=== PATIENT | female | born 1975 | race Caucasian/White ===

== ENCOUNTER 2016-09-06 17:04 | Emergency (ER) | payer SELFPAY ==
[~2016-09-06 17:04] MED LIST: Sodium Chloride 0.9% 1,000 ML BAG ONE
[2016-09-06] MEDS ORDERED: Aspirin 325 MG TAB ONE (18:50)
--- NOTE | 2016-09-06 18:59 | RAD ---
FRONTAL RADIOGRAPH OF CHEST PORTABLE UPRIGT: Date: 09/06/16 COMPARISON: 08/06/13. HISTORY: Chest pain. FINDINGS: Lungs are clear. Heart and mediastinal contours within normal limits. Osseous structures are grossly unremarkable. Clips in right upper quadrant suggest prior cholecystectomy. IMPRESSION: No acute findings. POS: HUGHH
[2016-09-06 19:00] LABS: #Basophils 0.2 thou/uL (0.0-0.2); #Eosinphils 0.5 thou/uL (0.0-0.7); #Lymphocytes 3.6 thou/uL (1.20-3.40); #Monocytes 0.6 thou/uL (0.11-0.59); %Basophils 1.7 % (0.0-1.0); %Eosinophils 4.6 % (0.0-10.0); %Lymphocytes 36.5 % (21.0-51.0); %Neutrophils 51.2 % (42.0-75.0); Hemoglobin 12.4 g/dL (12.0-16.0); Mean Corpuscular HGB CONC 36.5 g/dL (32.0-36.0); Mean Corpuscular Hemoglobin 33.3 pg (27.0-31.0); Mean Corpuscular Volume 91.4 fl (81.0-99.0); Mean Platelet Volume 7.4 fL (7.4-10.4); Platelet Count 350 thou/uL (130-400); RBC Distribution Width 11.9 % (11.5-14.5); Red Blood Cell (RBC) Count 3.73 mill/uL (4.20-5.40); White Blood Cell (WBC) Count 9.8 thou/uL (4.8-10.8)
[2016-09-06 19:02] LABS: INR-International Normal Ratio 0.9; Prothrombin Time 12.6 SEC (12.0-14.7)
[2016-09-06 19:14] LABS: ALT (SGPT) 12 U/L (0-55); AST (SGOT) 14 U/L (5-34); Alkaline Phosphatase 117 U/L (40-150); Anion Gap 19 mmol/L (10-20); BUN (Urea Nitrogen) 14 mg/dL (7.0-18.7); Bilirubin, Total Less than 0.3 mg/dL (0.2-1.2); CK (CPK) 82 U/L (29-168); Calc. Creatinine Clearance 0 mL/min (70-130); Calcium 9.2 mg/dL (7.8-10.44); Carbon Dioxide 25 mmol/L (22-29); Chloride 102 mmol/L (98-107); Estimated GFR-MDRD 54; Globulin 2.4 g/dL (2.4-3.5); Glucose 87 mg/dL (70-105); Potassium 4.3 mmol/L (3.5-5.1); Protein, Total 6.4 g/dL (6.0-8.3); Sodium 142 mmol/L (136-145)
[2016-09-06 19:21] LABS: CKMB 0.5 ng/mL (0-6.6); Troponin I Less than 0.010 ng/mL (< 0.028)
[2016-09-06 19:29] LABS: Magnesium 2.3 mg/dL (1.6-2.6)
--- NOTE | 2016-09-06 23:05 | ERRECORD ---
[facility] EMERGENCY RECORD HPI CHEST PAIN (18:09 LLDO) CHIEF COMPLAINT: Patient presents for evaluation of chest pain, ongoing, Denies automated implantable cardioverter-defibrillator event, Patient presents for evaluation of mild discomfort last night but much worse when she woke this morning. mostly substernal and bilateral ant chest. rad to left shoulder, left arm, left neck and back. associated sob and occasionally some diaphoresis and intermittent nausea. never had this pain before. smoker. brother had his first heart attack at age 23. HISTORIAN: History provided by patient, History provided by patient's spouse. LOCATION: Symptoms are generalized. QUALITY: Pain is dull in nature, described as aching, described as a sensation of fullness, described as pressure-like, described as "like somebody hit me in the middle of the chest. SEVERITY: Maximum severity of symptoms severe, Currently symptoms are moderate, Maximum severity of pain rated as 10/10, Current severity of pain rated as 8/10. TIME COURSE: Sudden onset of symptoms, Symptoms are improving, are constant. ASSOCIATED WITH: No associated cough, Associated with diaphoresis, No associated fever, Associated with nausea, Associated with shortness of breath, No associated trauma, No associated upper respiratory infection, No associated vomiting. EXACERBATED BY: Patient's condition exacerbated by deep breaths, Patient's condition exacerbated by exercise, Patient's condition exacerbated by movement, Patient's condition exacerbated by palpation of chest, Patient's condition exacerbated by walking. RELIEVED BY: Patient's condition relieved by nothing. RISK FACTORS: Coronary artery disease risk factors, include family history, include smoking, Thoracic aortic dissection risk factors, Pulmonary embolism risk factors, include smoking. HEART SCORE: Patients history is Highly Suspicious (2), Patients ECG has Non specific repolarisation disturbance/LBTB/PM (1), Patients age is equal to or less than 45 (0), Patient has 1 or 2 risk factors (1), Total 4. WELLS CRITERIA FOR PE: Total 0. ROS CONSTITUTIONAL: Negative constitutional review of systems. (18:21 LLDO) EYES: Negative eye review of systems, Historian denies eye pain, denies eye redness, denies eye discharge. (18:24 LLDO) ENT: Negative ears, nose, throat review of systems, Historian &a-1R&a+25V*p+0X*t4365D*c202B*c15G*c2P*p-0X&a-25V&a+1R Name: Jolie Joshi : 1975 F41 MedRec: [id number] AcctNum: [id number] Prepared: Myranda Sep 06, 2016 21:24 by Interface Page 1 of 5 pMD [facility] EMERGENCY RECORD denies epistaxis, denies rhinorrhea, denies sinus pain, denies sore throat. (18:24 LLDO) CARDIOVASCULAR: Historian reports chest pain, radiation to, Historian reports diaphoresis, reports dyspnea on exertion. (18:21 LLDO) RESPIRATORY: Negative respiratory review of systems, Historian denies cough, denies shortness of breath, denies sputum. (18:24 LLDO) GI: Historian reports nausea. (18:21 LLDO) GENITOURINARY FEMALE: Negative genitourinary review of systems, Historian denies dysuria, denies frequency, denies urgency. (18:24 LLDO) MUSCULOSKELETAL: Negative musculoskeletal review of systems, Historian denies arthralgias, denies back pain, denies injury, denies myalgias, denies neck pain. (18:24 LLDO) SKIN: Negative skin review of systems, Historian denies cellulitis, denies rash, denies skin changes, denies skin lesions. (18:24 LLDO) NEUROLOGIC: Negative neurologic review of systems, Historian denies confusion, denies dizziness, denies focal weakness, denies mental status changes. (18:24 LLDO) HEMO/LYMPHATIC: Normal hematologic/lymphatic system review, Historian denies abnormal blood clotting, denies gum bleeding, denies petechiae. (18:24 LLDO) ALLERGIC/IMMUNOLOGIC: Normal allergy/immunologic system review, Historian denies eczema, denies environmental allergies, denies food allergies. (18:24 LLDO) PSYCHIATRIC: Negative psychiatric review of systems, Historian denies alcohol abuse, denies anxiety, denies depression, denies drug abuse, denies hallucinations. (18:24 LLDO) NOTES: All systems reviewed, negative except as described above. (18:21 LLDO) PAST MEDICAL HISTORY MEDICAL HISTORY: Notes: VERIFIED 09-06-16, Past medical history includes neurological disease, generalized seizures. (Myranda Sep 06, 2016 17:10 JPER) FEMALE SURGICAL HISTORY: VERIFIED 09-06-16, Surgical history of cholecystectomy, Surgical history of hysterectomy. (Mineral Sep 06, 2016 17:10 JPER) PSYCHIATRIC HISTORY: Notes: DENIES. ([place] Sep 06, 2016 17:10 JPER) SOCIAL HISTORY: Social History includes VERIFIED 09-06-16, Patient denies alcohol use, Patient is a former drug user, Drug history notes: CRACK, Patient currently uses tobacco, smokes cigarettes, Patient smokes 1 pack per day. ([place]eral Sep 06, 2016 17:10 JPER) NOTES: Nursing records reviewed, Agree with nursing records, Medication list reviewed. (18:23 LLDO) KNOWN ALLERGIES &a-1R&a+25V*p+0X*p6671K*c202B*c15G*c2P*p-0X&a-25V&a+1R Name: Jolie Joshi : 1975 F41 MedRec: [id number] AcctNum: [id number] Prepared: Myranda Sep 06, 2016 21:24 by Interface Page 2 of 5 pMD [facility] EMERGENCY RECORD ADVERSE RX TO PHENOBARB (Unconfirmed) PHENobarbital: - SUICIDAL CURRENT MEDICATIONS (19:04 CJEF) None VITAL SIGNS VITAL SIGNS: BP: 113/53, Pulse: 80, Resp: 20, Temp: 98.8 (Oral), Pain: 8, O2 sat: 98 on Room Air, Time: 09/06/2016 17:07. (17:07 JPER) BP: 94/47, Pulse: 80, Resp: 18, O2 sat: 98 on Room Air, Time: 09/06/2016 17:15. (17:15 CJEF) BP: 93/67, Pulse: 85, Resp: 18, O2 sat: 99 on Room Air, Time: 09/06/2016 17:30. (17:30 CJEF) BP: 92/56, Pulse: 92, Resp: 18, O2 sat: 99 on Room Air, Time: 09/06/2016 18:01. (18:01 CJEF) BP: 84/36, Pulse: 81, Resp: 18, O2 sat: 97 on Room Air, Time: 09/06/2016 18:30. (18:30 CJEF) BP: 89/55, Pulse: 76, Resp: 20, Pain: 8, O2 sat: 99 on Room Air, Time: 09/06/2016 18:58. (18:58 CJEF) BP: 95/66, Pulse: 74, Resp: 20, O2 sat: 95 on Room Air, Time: 09/06/2016 19:01. (19:01 CJEF) BP: 102/57, Pulse: 77, Resp: 20, O2 sat: 96 on Room Air, Time: 09/06/2016 19:29. (19:29 CJEF) BP: 91/56, Pulse: 73, Resp: 20, O2 sat: 96 on Room Air, Time: 09/06/2016 19:46. (19:46 CJEF) BP: 95/61, Pulse: 85, Resp: 20, Pain: 8, O2 sat: 98 on Room Air, Time: 09/06/2016 20:00. (20:00 CJEF) BP: 123/72, Pulse: 63, Resp: 18, O2 sat: 97 on Room Air, Time: 09/06/2016 20:24. (20:24 CJEF) Pain: 9, Time: 09/06/2016 20:25. (20:25 CJEF) BP: 100/61, Pulse: 59, Resp: 21, Temp: 98.4 (Oral), Pain: 9, O2 sat: 97 on Room Air, Time: 09/06/2016 20:35. (20:35 CJEF) BP: 107/65, Pulse: 78, Resp: 20, O2 sat: 100 on Room Air, Time: 09/06/2016 20:54. (20:54 CJEF) PHYSICAL EXAM CONSTITUTIONAL: Vital Signs Reviewed, Patient afebrile, Pulse normal, Blood pressure, BP SLIGHTLY LOW. pt says her bp is always low, Respiratory rate normal, Patient appears non toxic, Patient appears pain free, Patient alert and oriented to person, place and time, Nursing notes reviewed. (18:21 LLDO) HEAD: Head exam normal, Head exam included findings of head atraumatic, normocephalic. (18:24 LLDO) EYES: Eye exam normal, Eye exam included findings of eyelids normal to inspection, Pupils equally round and reactive to light, Extraocular muscles intact. (18:24 LLDO) ENT: ENT exam normal, Ear exam normal, Nose exam normal. (18:24 LLDO) NECK: Neck exam normal, Neck exam included findings of normal range of motion, Trachea midline, no meningeal signs, no tenderness. &a-1R&a+25V*p+0X*m2413M*c202B*c15G*c2P*p-0X&a-25V&a+1R Name: Jolie Joshi : 1975 F41 MedRec: [id number] AcctNum: [id number] Prepared: Myranda Sep 06, 2016 21:24 by Interface Page 3 of 5 pMD [facility] EMERGENCY RECORD (18:24 LLDO) RESPIRATORY CHEST: Respiratory and chest exam normal, Respiratory exam included findings of, Chest exam included findings of chest movement symmetrical, Chest expansion equal. (18:24 LLDO) CARDIOVASCULAR: Heart rate regular rate and rhythm, Heart sounds with, diastolic murmur present, grade 2/6. (18:21 LLDO) ABDOMEN FEMALE: Abdominal exam normal, Abdominal exam included findings of abdomen nontender, Bowel sounds normal, no peritoneal signs. (18:24 LLDO) BACK: Back exam normal, Back exam included findings of normal inspection, range of motion normal. (18:24 LLDO) UPPER EXTREMITY: Upper extremity exam normal, Upper extremity exam included findings of inspection normal, Range of motion normal. (18:24 LLDO) LOWER EXTREMITY: Lower extremity exam normal, Lower extremity exam included findings of inspection normal, Range of motion normal. (18:24 LLDO) NEURO: Neuro exam normal, Neuro exam findings include patient oriented to person, place and time, Speech normal, Patito coma scale 15. (18:24 LLDO) SKIN: Skin exam normal, Skin exam included findings of skin warm, dry, and normal in color, no rash. (18:24 LLDO) PSYCHIATRIC: Psychiatric exam normal, Psychiatric exam included findings of patient oriented to person place and time, Normal affect. (18:24 LLDO) RADIOLOGYINTERPRETATION (18:51 LLDO) PROBATE CLERK: Preliminary review of x-rays by, Radiologist, neg cxr. MEDICATION ADMINISTRATION SUMMARY Drug Name: Duramorph (PF), Dose Ordered: 4 mg, Route: IV Push, Status: Given, Time: 19:58 09/06/2016, Drug Name: *sodium chloride 0.9 % intravenous, Dose Ordered: 1 L, Route: IV Fluid Infusion, Status: Given, Time: 19:47 09/06/2016, Drug Name: aspirin oral, Dose Ordered: 325 mg, Route: Oral, Status: Given, Time: 18:54 09/06/2016, Drug Name: *sodium chloride 0.9 % intravenous, Dose Ordered: 1 L, Route: IV Fluid Infusion, Status: Given, Time: 18:54 09/06/2016, Drug Name: *nitroglycerin sublingual, Dose Ordered: 1 tab(s), Route: Oral, Status: Held, Time: 18:50 09/06/2016, *Additional information available in notes, Detailed record available in Medication Service section. DOCTOR NOTES (21:03 LLDO) TEXT: I believe this pain could be angina, even though the labs are good. her ekg suggests a possible mi in the past. her family &a-1R&a+25V*p+0X*g7933B*c202B*c15G*c2P*p-0X&a-25V&a+1R Name: Jolie Joshi : 1975 F41 MedRec: [id number] AcctNum: [id number] Prepared: Myranda Sep 06, 2016 21:24 by Interface Page 4 of 5 pMD [facility] EMERGENCY RECORD hx is concerning and her presentation was suspicious for cardiac pain. pt, however is now refusing to go to the [facility] for at least overnight observation. I have strongly urged her to allow us to transfer to [facility] and repeatedly emphasized the dangers/risks of leaving. I have been unsuccessful in convincing her to allow us to transfer. she will sign ama paperwork, and I will give a few pain pills in case this really is just chest wall pain. pt understands the need to return if sx recur. no pain now. PROBLEM LIST No recorded problems DIAGNOSIS (21:09 LLDO) FINAL: PRIMARY: UNSTABLE ANGINA. PRESCRIPTION (21:10 LLDO) Tylenol-Codeine #3: TABLET : 300 mg-30 mg : ORAL : Quantity: 1 Unit: tab(s) Route: ORAL Schedule: every 4 hours prn Dispense: 24 Unit: tab(s) May substitute. Refills: No Refills . NOTES: No Refills. DISPOSITION PATIENT: Disposition Type: Eloped, Disposition: Against Medical Advice. (21:09 JAYLEN) Patient left the department. (21:20 YVETTE) Mauricio: YVETTE=MICHELLE Bae, Jayne ORTIZ=MICHELLE Razo, Kathy YORK=MD Parker, Philip &a-1R&a+25V*p+0X*r2214Y*c202B*c15G*c2P*p-0X&a-25V&a+1R Name: Jolie Joshi Mague : 1975 F41 MedRec: [id number] AcctNum: [id number] Prepared: Myranda Sep 06, 2016 21:24 by Interface Page 5 of 5 pMD MTDD
--- NOTE | 2016-09-06 23:28 | PICIS ---
[facility] EMERGENCY RECORD TRIAGE ([place] Sep 06, 2016 17:10 JPER) PATIENT: NAME: Jolie Joshi, AGE: 41, GENDER: female, : Sun 1975, TIME OF GREET: [place] Sep 06, 2016 17:04, PREFERRED LANGUAGE: Salvadorean, RACE: WHITE, ETHNICITY: Not or , ECODE BILLING MAP: [facility], SSN: [id number], Zip Code: [address], KG WEIGHT: 47.63, PHONE: , , , PERSON ID: [id number], PCP: NO PCP. ([place] Sep 06, 2016 17:10 JPER) COMPLAINT: HIGH RISK COMPLAINT: CHEST PAIN. ([place] Sep 06, 2016 17:10 JPER) ADMISSION: URGENCY: 3 Urgent, ADMISSION SOURCE: Home, TRANSPORT: Walk-in, BED: ED -02. ([place] Sep 06, 2016 17:10 JPER) ASSESSMENT: Assessment: PT C/O LEFT SIDED CP; SOB ONSET THIS AM. ([place] Sep 06, 2016 17:10 JPER) PAIN: Patient complains of pain described as, pressure, on a scale 0-10 patient rates pain as 8, No aggravating factors, No relieving factors. ([place] Sep 06, 2016 17:10 JPER) IMMUNIZATIONS: Flu vaccine not up to date, Tetanus immunization up to date, Pneumococcal vaccine not up to date. ([place] Sep 06, 2016 17:10 JPER) SIRS SCORING: Heart Rate 55-109 (0), Temp range 96.8-101.1 (0), respiratory rate 12-24 (0), Mental Status altered: no (0). ([place] Sep 06, 2016 17:10 JPER) TRIAGE SCREENING: Patient denies suicidal ideation, Patient denies presence of domestic violence. ([place] Sep 06, 2016 17:10 JPER) PROVIDERS: TRIAGE NURSE: Kathy Razo RN. ([place] Sep 06, 2016 17:10 JPER) VITAL SIGNS: BP 113/53, Pulse 80, Resp 20, Temp 98.8, (Oral), Pain 8, O2 Sat 98, on Room Air, Time 09/06/2016 17:07. (17:07 JPER) PREVIOUS VISIT ALLERGIES: PHENobarbital. ([place] Sep 06, 2016 17:10 JPER) KNOWN ALLERGIES ADVERSE RX TO PHENOBARB (Unconfirmed) PHENobarbital: - SUICIDAL CURRENT MEDICATIONS (19:04 CJEF) None VITAL SIGNS VITAL SIGNS: BP: 113/53, Pulse: 80, Resp: 20, Temp: 98.8 (Oral), Pain: 8, O2 sat: 98 on Room Air, Time: 09/06/2016 17:07. (17:07 JPER) BP: 94/47, Pulse: 80, Resp: 18, O2 sat: 98 on Room Air, Time: 09/06/2016 17:15. (17:15 CJEF) BP: 93/67, Pulse: 85, Resp: 18, O2 sat: 99 on Room Air, Time: 09/06/2016 17:30. (17:30 CJEF) BP: 92/56, Pulse: 92, Resp: 18, O2 sat: 99 on Room Air, Time: 09/06/2016 18:01. (18:01 CJEF) BP: 84/36, Pulse: 81, Resp: 18, O2 sat: 97 on Room Air, Time: 09/06/2016 &a-1R&a+25V*p+0X*m7618W*c202B*c15G*c2P*p-0X&a-25V&a+1R Name: Jolie Joshi : 1975 F41 MedRec: [id number] AcctNum: [id number] Prepared: Myranda Sep 06, 2016 21:24 by Interface Page 1 of 16 pMD [facility] EMERGENCY RECORD 18:30. (18:30 CJEF) BP: 89/55, Pulse: 76, Resp: 20, Pain: 8, O2 sat: 99 on Room Air, Time: 09/06/2016 18:58. (18:58 CJEF) BP: 95/66, Pulse: 74, Resp: 20, O2 sat: 95 on Room Air, Time: 09/06/2016 19:01. (19:01 CJEF) BP: 102/57, Pulse: 77, Resp: 20, O2 sat: 96 on Room Air, Time: 09/06/2016 19:29. (19:29 CJEF) BP: 91/56, Pulse: 73, Resp: 20, O2 sat: 96 on Room Air, Time: 09/06/2016 19:46. (19:46 CJEF) BP: 95/61, Pulse: 85, Resp: 20, Pain: 8, O2 sat: 98 on Room Air, Time: 09/06/2016 20:00. (20:00 CJEF) BP: 123/72, Pulse: 63, Resp: 18, O2 sat: 97 on Room Air, Time: 09/06/2016 20:24. (20:24 CJEF) Pain: 9, Time: 09/06/2016 20:25. (20:25 CJEF) BP: 100/61, Pulse: 59, Resp: 21, Temp: 98.4 (Oral), Pain: 9, O2 sat: 97 on Room Air, Time: 09/06/2016 20:35. (20:35 CJEF) BP: 107/65, Pulse: 78, Resp: 20, O2 sat: 100 on Room Air, Time: 09/06/2016 20:54. (20:54 CJEF) NURSING ASSESSMENT: CARDIOVASCULAR (18:59 CJEF) CONSTITUTIONAL: PT REPORTS LEFT SIDE CHEST PAIN THAT STARTED THIS MORNING AND RADIATES TO THE LEFT ARM AND BACK. PT REPORTS THAT SHE HAS BEEN COUGHING AND WAS DIAGNOSED WTIH BRONCHITIS ON THE FIRST OF THIS MONTH. PT REPORTS CONTINUED COUGHING SINCE THE DIAGNOSIS. PAIN: aching pain, to the left chest, PT REPORTS LEFT SIDE CHEST PAIN THAT RADIATES TO LEFT ARM AND BACK. CARDIOVASCULAR: Cardiovascular assessment findings include heart rate normal, Heart rhythm normal sinus, Heart sounds normal, S1, S2, Associated with dyspnea, with exertion. RESPIRATORY/CHEST: Breath sounds clear, Respiratory assessment findings include respiratory effort easy, Respirations regular, Conversing normally, Neck and chest exam findings include trachea midline, Chest expansion equal, Chest movement symmetrical, no signs of distress, Associated with cough. NOTES: Patient tolerated procedure well. SAFETY: Side rails up, Cart/Stretcher in lowest position, Family at bedside, Call light within reach, Hospital ID band on. NURSING ASSESSMENT: FALL RISK (18:25 CJEF) FALL RISK: Total score 0, No risk for fall. [place] II FALL RISK: Able to rise in a single movement; no loss of balance with steps(0), Total score 0, Score less than 5. Patient not high risk for falls. NURSING ASSESSMENT: RESPIRATORY /CHEST CONSTITUTIONAL: Patient arrives, via hospital wheelchair, Unsteady gait, Assistance to cart, History obtained from patient, Patient appears comfortable, Patient cooperative, Patient alert, Oriented to person, place and time, Skin &a-1R&a+25V*p+0X*v1941E*c202B*c15G*c2P*p-0X&a-25V&a+1R Name: Jolie Joshi : 1975 F41 MedRec: [id number] AcctNum: [id number] Prepared: Myranda Sep 06, 2016 21:24 by Interface Page 2 of 16 pMD [facility] EMERGENCY RECORD warm, Skin dry, Skin normal in color, Mucous membranes pink, Mucous membranes moist, Patient is well-groomed, Patient complains of C/O SOB;MID TO LEFT SIDED CHEST PRESSURE SINCE AWAKENING THIS AM. (17:22 JPER) PAIN: pressure pain, to the left chest, Onset of pain YESTERDAY, on a scale 0-10 patient rates pain as 8, Pain exacerbated by nothing, Nothing has been tried to alleviate the pain. (18:25 JPER) RESPIRATORY/CHEST: Lungs auscultated, Breath sounds diminished, to bilateral upper lobes, to bilateral lower lobes, UPPER AIRWAY CONGESTION CLEARED WITH COUGH, Respiratory assessment findings include respiratory effort easy, Respirations regular, Conversing normally, Neck and chest exam findings include trachea midline, Chest expansion equal, Chest movement symmetrical. (18:25 JPER) NOTES: Notes: ASKED IN TRIAGE IF THERE WERE ANY NOTES IN HER RECORD RELATING TO HER LAST ED VISIT IN WHICH SHE SAID SHE "PASSED OUT TWICE...I REALLY DON'T REMEMBER" PT SAYS SHE HAS HAD GENERALIZED BACK PAIN SINCE THIS INCIDENT; AMALIA FROM [facility] STATED THAT SHE DID NOT FALL; THAT SHE STATED SHE FELT THOUGH SHE WAS GOING TO PASS OUT AND THAT SHE WAS ASSISTED TO A SITTING POSITION; AMALIA STATED THAT THE PATIENT SAID THAT"IT'S OKAY...I DO THIS ALL THE TIME". (18:26 JPER) NURSING ASSESSMENT: SKIN (18:[address] [facility]) SKIN: Skin assessment findings include skin warm, Skin dry, Skin normal in color. NICK SCALE: (4) Sensory perception has no impairment, (4) Skin is rarely moist, (4) Patient walks frequently, (4) No mobility limitations, (3) Adequate nutrition, (3) Patient has no apparent problem moving, Nick Risk Total: 22. NOTES: Patient tolerated procedure well. SAFETY: Side rails up, Cart/Stretcher in lowest position, Family at bedside, Call light within reach, Hospital ID band on. NURSING PROCEDURE: BEDSIDE RADIOLOGY (18:24 CJ) PATIENT IDENTIFIER: Patient actively involved in identification process, Patient's identity verified by patient stating name, Patient's identity verified by patient stating date. BEDSIDE RADIOLOGY: Portable chest x-ray performed. NOTES: Patient tolerated procedure well. SAFETY: Side rails up, Cart/Stretcher in lowest position, Family at bedside, Call light within reach, Hospital ID band on. NURSING PROCEDURE: CONFERENCE TRANSLATOR (17:[address] [facility]) PATIENT IDENTIFIER: Patient actively involved in identification process, Patient's identity verified by patient stating name, Patient's identity verified by patient stating date. CONFERENCE TRANSLATOR: Cardiac monitoring indicated for complaint of chest pain, Patient placed on ekg monitor tech, Heart rate: &a-1R&a+25V*p+0X*d7530N*c202B*c15G*c2P*p-0X&a-25V&a+1R Name: Jolie Joshi : 1975 F41 MedRec: [id number] AcctNum: [id number] Prepared: Myranda Sep 06, 2016 21:24 by Interface Page 3 of 16 pMD [facility] EMERGENCY RECORD 80, showing normal sinus rhythm, Patient placed on non-invasive blood pressure monitor, Patient placed on continuous pulse oximetry, Adult/pediatric oxisensor applied. FOLLOW-UP: After procedure, alarms set and on, After procedure, patient tolerating monitoring. NOTES: Patient tolerated procedure well. SAFETY: Side rails up, Cart/Stretcher in lowest position, Family at bedside, Call light within reach, Hospital ID band on. NURSING PROCEDURE: DISCHARGE NOTE (21:[address] [facility]) DISCHARGE: Patient signed out against medical advice, ambulating without assistance, family driving, accompanied by //partner, Discharge instructions given to patient, Simple or moderate discharge teaching performed, Above person(s) verbalized understanding of discharge instructions and follow-up care, Notes: PT LEAVING AMA WITH INSTRUCTIONS OF WHAT TO LOOK FOR AND WHAT TO DO IN CASE OF EMERGENCY. PT VERBALIZES HER UNDERSTANDINGS. BELONGINGS: Belongings remain with patient. SAFETY: Side rails up, Cart/Stretcher in lowest position, Family at bedside, Call light within reach, Hospital ID band on. NURSING PROCEDURE: EKG CHART (18:17 CJEF) PATIENT IDENTIFIER: Patient actively involved in identification process, Patient's identity verified by patient stating name, Patient's identity verified by patient stating date. EKG: EKG indicated for complaint of chest pain, 12 lead EKG performed on the left chest, first EKG. FOLLOW-UP: After procedure, EKG for interpretation given to Dr. CANALES. NOTES: Patient tolerated procedure well. SAFETY: Side rails up, Cart/Stretcher in lowest position, Family at bedside, Call light within reach, Hospital ID band on. NURSING PROCEDURE: IV PATIENT IDENITIFIER: Patient actively involved in identification process, Patient's identity verified by patient stating name, Patient's identity verified by patient stating date. (18:20 CJEF) IV SITE 1: IV therapy indicated for hydration, IV therapy indicated for medication administration, IV established, to the right antecubital, using an 18 gauge catheter, in one attempt, IV site prepped with CHLORAPREP, Saline lock established, Flushed with normal saline (mls): 10, Labs drawn at time of placement, labeled in the presence of the patient and sent to lab. (18:20 CJEF) FOLLOW-UP SITE 1: After procedure, sterile transparent dressing applied. (18:20 CJEF) After procedure, 2x2 dressing applied, IV discontinued, due to patient being discharged, catheter intact. (21:14 CJEF) NOTES: Patient tolerated procedure well. (18:20 CJEF) SAFETY: Side rails up, Cart/Stretcher in lowest position, Family &a-1R&a+25V*p+0X*z4103I*c202B*c15G*c2P*p-0X&a-25V&a+1R Name: Jolie Joshi : 1975 F41 MedRec: [id number] AcctNum: [id number] Prepared: Myranda Sep 06, 2016 21:24 by Interface Page 4 of 16 D [facility] EMERGENCY RECORD at bedside, Call light within reach, Hospital ID band on. (18:20 CJEF) NURSING PROCEDURE: NURSE NOTES NURSES NOTES: Patient in no apparent distress, Patient resting quietly, Notes: PT RESTING IN BED QUIETLY WITH FAMILY AT BEDSIDE. NO DISTRESS NOTED. (18:48 CJEF) Patient in no apparent distress, Patient resting quietly, Notes: PT RESTING IN BED QUIETLY WITH FAMILY AT BEDSIDE. NO DISTRESS NOTED. (18:15 CJEF) Patient in no apparent distress, Patient resting quietly, Notes: PT RESTING IN BED QUIETLY WITH FAMILY AT BEDSIDE. NO DISTRESS NOTED. (18:57 CJEF) Notes: BEDSIDE SHIFT REPORT RECIEVED. NO DISTRESS NOTED. (18:52 CJEF) Patient in no apparent distress, Patient resting quietly, Notes: PT RESTING IN BED WITH EYES SHUT. NO DISTRESS NOTED. (19:47 CJEF) Patient in no apparent distress, Patient resting quietly, Notes: PT RESTING IN BED WITH EYES SHUT. NO DISTRESS NOTED. (20:01 CJEF) Notes: pt assisted to the restroom at this time in a wheelchair without incident, s/p connected to monitor with side rails up x 2 with no needs for further assist at this time. (20:31 JDEA) Patient in no apparent distress, Patient resting quietly, Notes: PT RESTING IN BED WITH EYES SHUT. NO DISTRESS NOTED. (20:55 CJEF) Notes: PT AND DR CANALES SPOKE ABOUT PT BEING TRANSFERRED TO [facility] FOR OVERNIGHT EVAL. PT REPORTING THAT SHE DOES NOT WISH TO BE TRANSFERRED AND WISHES TO SIGN OUT AMA INSTEAD. DR. CANALES INFORMS PT OF RISKS OF LEAVING AMA. (21:03 CJEF) ORDER DETAILS Order Name: B type Natriuretic Peptide, Status: Active, Time: 18:06 09/06/2016, User: JAYLEN, - Ordered for: MD Canales Lloyd, - Entered by: MD Canales Lloyd - Sun Sep 06, 2016 18:06, - Quantity: 1, Order Name: CONFERENCE TRANSLATOR ED, Status: Done, Time: 18:23 09/06/2016, User: YVETTE, - Ordered for: MD Canales Lloyd, - Entered by: MD Canales Lloyd - Sun Sep 06, 2016 18:06, - Quantity: 1, Order Name: Cardiac Profile w/CKMB & Troponin - I, Status: Active, Time: 18:06 09/06/2016, User: LLDO, - Ordered for: MD Canales Lloyd, - Entered by: MD Canales Lloyd - [place]randa Sep 06, 2016 18:06, - Quantity: 1, Order Name: CBC with Differential, Status: Active, Time: 18:06 09/06/2016, User: LLDO, - Ordered for: MD Canales Lloyd, - Entered by: MD Canales Lloyd - Myranda Sep 06, 2016 18:06, &a-1R&a+25V*p+0X*b4953K*c202B*c15G*c2P*p-0X&a-25V&a+1R Name: Jolie Joshi : 1975 F41 MedRec: [id number] AcctNum: [id number] Prepared: Myranda Sep 06, 2016 21:24 by Interface Page 5 of 16 D [facility] EMERGENCY RECORD - Quantity: 1, Order Name: CK (CPK), Status: Active, Time: 18:06 09/06/2016, User: LLDO, - Ordered for: MD Canales Lloyd, - Entered by: MD Canales Lloyd - Myranda Sep 06, 2016 18:06, - Quantity: 1, Order Name: Comprehensive Metabolic Panel, Status: Active, Time: 18:06 09/06/2016, User: LLDO, - Ordered for: MD Canales Lloyd, - Entered by: MD Canales Lloyd - Sun Sep 06, 2016 18:06, - Quantity: 1, Order Name: EKG 12 Lead in Emergency Room, Status: Active, Time: 18:06 09/06/2016, User: LLDO, - Ordered for: MD Canales Lloyd, - Entered by: MD Canales Lloyd - Myranda Sep 06, 2016 18:06, - Quantity: 1, Order Name: ERRT Oxygen Usage ER, Status: Active, Time: 18:06 09/06/2016, User: LLDO, - Ordered for: MD Canales Lloyd, - Entered by: MD Canales Lloyd - Sun Sep 06, 2016 18:06, - Quantity: 1, Order Name: ERRT Pulse Oximeter ER, Status: Active, Time: 18:06 09/06/2016, User: LLDO, - Ordered for: MD Canales Lloyd, - Entered by: MD Canales Lloyd - Sun Sep 06, 2016 18:06, - Quantity: 1, Order Name: Magnesium, Status: Active, Time: 18:06 09/06/2016, User: LLDO, - Ordered for: MD Canales Lloyd, - Entered by: MD Canales Lloyd - Sun Sep 06, 2016 18:06, - Quantity: 1, Order Name: Protime with INR, Status: Active, Time: 18:06 09/06/2016, User: LLDO, - Ordered for: MD Canales Lloyd, - Entered by: MD Canales Lloyd - Sun Sep 06, 2016 18:06, - Quantity: 1, Order Name: PTT, Status: Active, Time: 18:06 09/06/2016, User: LLDO, - Ordered for: MD Canales Lloyd, - Entered by: MD Canales Lloyd - Sun Sep 06, 2016 18:06, - Quantity: 1, Order Name: SALINE LOCK, Status: Done, Time: 18:23 09/06/2016, User: CJEF, - Ordered for: MD Canales Lloyd, - Entered by: MD Canales Lloyd - Sun Sep 06, 2016 18:06, - Quantity: 1, Order Name: XR Chest 1 View Portable, Status: Active, Time: 18:06 09/06/2016, User: LLDO, - Ordered for: MD Canales Lloyd, - Entered by: MD Canales Lloyd - Sun Sep 06, 2016 18:06, - Quantity: 1. &a-1R&a+25V*p+0X*e3197B*c202B*c15G*c2P*p-0X&a-25V&a+1R Name: Jolie Joshi : 1975 F41 MedRec: [id number] AcctNum: [id number] Prepared: Myranda Sep 06, 2016 21:24 by Interface Page 6 of 16 pMD [facility] EMERGENCY RECORD MEDICATION ADMINISTRATION SUMMARY Drug Name: Duramorph (PF), Dose Ordered: 4 mg, Route: IV Push, Status: Given, Time: 19:58 09/06/2016, Drug Name: *sodium chloride 0.9 % intravenous, Dose Ordered: 1 L, Route: IV Fluid Infusion, Status: Given, Time: 19:47 09/06/2016, Drug Name: aspirin oral, Dose Ordered: 325 mg, Route: Oral, Status: Given, Time: 18:54 09/06/2016, Drug Name: *sodium chloride 0.9 % intravenous, Dose Ordered: 1 L, Route: IV Fluid Infusion, Status: Given, Time: 18:54 09/06/2016, Drug Name: *nitroglycerin sublingual, Dose Ordered: 1 tab(s), Route: Oral, Status: Held, Time: 18:50 09/06/2016, *Additional information available in notes, Detailed record available in Medication Service section. MEDICATION SERVICE aspirin oral: Order: aspirin oral (aspirin) - Dose: 325 mg : Oral Schedule: Now Ordered by: Philip Canales MD Entered by: MD Myranda Jorge Sep 06, 2016 18:07 Documented as given by: MICHELLE Ibanez Sep 06, 2016 18:54 Patient, Medication, Dose, Route and Time verified prior to administration. Amount given: 325MG, Site: Medication administered P.O., Mouth check performed after administration of medication, Patient appears Awake and alert- acceptable, Correct patient, time, route, dose and medication confirmed prior to administration, Patient advised of actions and side-effects prior to administration, Allergies confirmed and medications reviewed prior to administration, Patient tolerated procedure well, Patient in position of comfort, Side rails up, Cart in lowest position, Family at bedside. : Follow Up : Response assessment performed, No signs or symptoms of allergic reaction noted, Advised not to ambulate without assistance, Patient in position of comfort, Side rails up, Cart in lowest position, Family at bedside. (19:[address] [facility]) Duramorph (PF): Order: Duramorph (PF) (morphine sulfate/preservative free) - Dose: 4 mg : IV Push Schedule: Now Ordered by: Philip Canales MD Entered by: MD Myranda Jorge Sep 06, 2016 19:51 Documented as given by: MICHELLE Ibanez Sep 06, 2016 19:58 Patient, Medication, Dose, Route and Time verified prior to administration. Amount given: 4 MG, IV SITE #1 IVP, subsequent different medication, Slowly, Awake and alert- acceptable, Connections checked prior to administration, Line traced prior to administration, Catheter placement confirmed via flush prior to administration, IV site without signs or symptoms of infiltration during medication &a-1R&a+25V*p+0X*k8014W*c202B*c15G*c2P*p-0X&a-25V&a+1R Name: Jolie Joshi : 1975 F41 MedRec: [id number] AcctNum: [id number] Prepared: Myranda Sep 06, 2016 21:24 by Interface Page 7 of 16 pMD [facility] EMERGENCY RECORD administration, No swelling during administration, No drainage during administration, IV flushed after administration, Correct patient, time, route, dose and medication confirmed prior to administration, Patient advised of actions and side-effects prior to administration, Allergies confirmed and medications reviewed prior to administration, Patient tolerated procedure well, Patient in position of comfort, Side rails up, Cart in lowest position, Family at bedside, 2 MG MORPHINE GIVEN THEN BP WAS TAKEN X2 OVER SEVERAL MINUTES BEFORE THE REMAINDER OF THE 2MG OF MORPHINE WAS ADMINSITERED DUE TO PT'S BORDERLINE HYPOTENSIVE BP. PT'S BP REMAINED AROUND THE SAME BEFORE ADMINISTRATION, DURING ADMINSTRATION, AND AFTER ADMSINISTRATION. nitroglycerin sublingual: Order: nitroglycerin sublingual (nitroglycerin) - Dose: 1 tab(s) : Oral Schedule: Every 5 minutes Repeat: 3 DOSES Notes: UNTIL PAIN GONE OR SBP DROPS BELOW 105 Ordered by: Philip Canales MD Entered by: MD Myranda Jorge Sep 06, 2016 18:07 , Held by: MICHELLE Ibanez Sep 06, 2016 18:50 Reason: Vital signs out of range:BP 84\\36. sodium chloride 0.9 % intravenous: Order: sodium chloride 0.9 % intravenous (0.9 % sodium chloride) - Dose: 1 L : IV Fluid Infusion Notes: (Bolus)after bolus, run NS at kvo rate Ordered by: Philip Canales MD Entered by: MD Myranda Jorge Sep 06, 2016 18:08 Documented as given by: MICHELLE Ibanez Sep 06, 2016 18:54 Patient, Medication, Dose, Route and Time verified prior to administration. Amount given: 1 L, IV SITE #1 IV fluids established for hydration, IV SITE #1 into right antecubital, IV SITE #1 1st bag hung, IV SITE #1 bolus of 1000 ml established, via primary tubing, Awake and alert- acceptable, Connections checked prior to administration, Line traced prior to administration, Catheter placement confirmed via flush prior to administration, IV site without signs or symptoms of infiltration during medication administration, No swelling during administration, No drainage during administration, IV flushed after administration, Correct patient, time, route, dose and medication confirmed prior to administration, Patient advised of actions and side-effects prior to administration, Allergies confirmed and medications reviewed prior to administration, Patient tolerated procedure well, Patient in position of comfort, Side rails up, Cart in lowest position, Family at bedside. : Follow Up : Response assessment performed, No signs or symptoms of allergic reaction noted, _IV SITE #1:_, IV fluid infusion discontinued, on WedSep 06, 2016 19:41, 50 minutes, ., Total amount infused: 1 L, Advised not to ambulate without assistance, Patient in position of comfort, Side rails up, Cart in lowest position, Family at bedside. (19:[address] [facility]) sodium chloride 0.9 % intravenous: Order: sodium chloride 0.9 % intravenous (0.9 % sodium chloride) - Dose: 1 L : IV Fluid &a-1R&a+25V*p+0X*w4748R*c202B*c15G*c2P*p-0X&a-25V&a+1R Name: Jolie Joshi : 1975 F41 MedRec: [id number] AcctNum: [id number] Prepared: Myranda Sep 06, 2016 21:24 by Interface Page 8 of 16 pMD [facility] EMERGENCY RECORD Infusion Schedule: Now Notes: run NS at kvo rate Written Order Ordered by: Philip Canales MD Entered by: MICHELLE Ibanez Sep 06, 2016 19:47 Documented as given by: MICHELLE Ibanez Sep 06, 2016 19:47 Patient, Medication, Dose, Route and Time verified prior to administration. Amount given: 1 L, IV SITE #1 IV fluids established for hydration, IV SITE #1 into right antecubital, IV SITE #1 2nd bag hung, amount 1 Liter hung, IV SITE #1 Rate of infusion (non-bolus) Infusing at KVO, via primary tubing, Awake and alert- acceptable, Connections checked prior to administration, Line traced prior to administration, Catheter placement confirmed via flush prior to administration, IV site without signs or symptoms of infiltration during medication administration, No swelling during administration, No drainage during administration, IV flushed after administration, Correct patient, time, route, dose and medication confirmed prior to administration, Patient advised of actions and side-effects prior to administration, Allergies confirmed and medications reviewed prior to administration, Patient tolerated procedure well, Patient in position of comfort, Side rails up, Cart in lowest position, Family at bedside. : Follow Up : Response assessment performed, No signs or symptoms of allergic reaction noted, _IV SITE #1:_, IV fluid infusion discontinued, on Sun Sep 06, 2016 21:14, Total fluid hydration time IV site 1 1 hour, 30 minutes, ., Total amount infused: 820ML, Advised not to ambulate without assistance, Patient in position of comfort, Side rails up, Cart in lowest position, Family at bedside. (21:[address] [facility]) HPI CHEST PAIN (18:09 LLDO) CHIEF COMPLAINT: Patient presents for evaluation of chest pain, ongoing, Denies automated implantable cardioverter-defibrillator event, Patient presents for evaluation of mild discomfort last night but much worse when she woke this morning. mostly substernal and bilateral ant chest. rad to left shoulder, left arm, left neck and back. associated sob and occasionally some diaphoresis and intermittent nausea. never had this pain before. smoker. brother had his first heart attack at age 23. HISTORIAN: History provided by patient, History provided by patient's spouse. LOCATION: Symptoms are generalized. QUALITY: Pain is dull in nature, described as aching, described as a sensation of fullness, described as pressure-like, described as "like somebody hit me in the middle of the chest. SEVERITY: Maximum severity of symptoms severe, Currently symptoms are moderate, Maximum severity of &a-1R&a+25V*p+0X*[id number]*c202B*c15G*c2P*p-0X&a-25V&a+1R Name: Jolie Joshi : 1975 F41 MedRec: [id number] AcctNum: [id number] Prepared: Myranda Sep 06, 2016 21:24 by Interface Page 9 of 16 pMD [facility] EMERGENCY RECORD pain rated as 10/10, Current severity of pain rated as 8/10. TIME COURSE: Sudden onset of symptoms, Symptoms are improving, are constant. ASSOCIATED WITH: No associated cough, Associated with diaphoresis, No associated fever, Associated with nausea, Associated with shortness of breath, No associated trauma, No associated upper respiratory infection, No associated vomiting. EXACERBATED BY: Patient's condition exacerbated by deep breaths, Patient's condition exacerbated by exercise, Patient's condition exacerbated by movement, Patient's condition exacerbated by palpation of chest, Patient's condition exacerbated by walking. RELIEVED BY: Patient's condition relieved by nothing. RISK FACTORS: Coronary artery disease risk factors, include family history, include smoking, Thoracic aortic dissection risk factors, Pulmonary embolism risk factors, include smoking. HEART SCORE: Patients history is Highly Suspicious (2), Patients ECG has Non specific repolarisation disturbance/LBTB/PM (1), Patients age is equal to or less than 45 (0), Patient has 1 or 2 risk factors (1), Total 4. WELLS CRITERIA FOR PE: Total 0. ROS CONSTITUTIONAL: Negative constitutional review of systems. (18:21 LLDO) EYES: Negative eye review of systems, Historian denies eye pain, denies eye redness, denies eye discharge. (18:24 LLDO) ENT: Negative ears, nose, throat review of systems, Historian denies epistaxis, denies rhinorrhea, denies sinus pain, denies sore throat. (18:24 LLDO) CARDIOVASCULAR: Historian reports chest pain, radiation to, Historian reports diaphoresis, reports dyspnea on exertion. (18:21 LLDO) RESPIRATORY: Negative respiratory review of systems, Historian denies cough, denies shortness of breath, denies sputum. (18:24 LLDO) GI: Historian reports nausea. (18:21 LLDO) GENITOURINARY FEMALE: Negative genitourinary review of systems, Historian denies dysuria, denies frequency, denies urgency. (18:24 LLDO) MUSCULOSKELETAL: Negative musculoskeletal review of systems, Historian denies arthralgias, denies back pain, denies injury, denies myalgias, denies neck pain. (18:24 LLDO) SKIN: Negative skin review of systems, Historian denies cellulitis, denies rash, denies skin changes, denies skin lesions. (18:24 LLDO) NEUROLOGIC: Negative neurologic review of systems, Historian denies confusion, denies dizziness, denies focal weakness, denies &a-1R&a+25V*p+0X*j9801W*c202B*c15G*c2P*p-0X&a-25V&a+1R Name: Jolie Joshi : 1975 F41 MedRec: [id number] AcctNum: [id number] Prepared: Myradna Sep 06, 2016 21:24 by Interface Page 10 of 16 pMD [facility] EMERGENCY RECORD mental status changes. (18:24 LLDO) HEMO/LYMPHATIC: Normal hematologic/lymphatic system review, Historian denies abnormal blood clotting, denies gum bleeding, denies petechiae. (18:24 LLDO) ALLERGIC/IMMUNOLOGIC: Normal allergy/immunologic system review, Historian denies eczema, denies environmental allergies, denies food allergies. (18:24 LLDO) PSYCHIATRIC: Negative psychiatric review of systems, Historian denies alcohol abuse, denies anxiety, denies depression, denies drug abuse, denies hallucinations. (18:24 LLDO) NOTES: All systems reviewed, negative except as described above. (18:21 LLDO) PAST MEDICAL HISTORY MEDICAL HISTORY: Notes: VERIFIED 09-06-16, Past medical history includes neurological disease, generalized seizures. (Myranda Sep 06, 2016 17:10 JPER) FEMALE SURGICAL HISTORY: VERIFIED 09-06-16, Surgical history of cholecystectomy, Surgical history of hysterectomy. (Myranda Sep 06, 2016 17:10 JPER) PSYCHIATRIC HISTORY: Notes: DENIES. (Myranda Sep 06, 2016 17:10 JPER) SOCIAL HISTORY: Social History includes VERIFIED 09-06-16, Patient denies alcohol use, Patient is a former drug user, Drug history notes: CRACK, Patient currently uses tobacco, smokes cigarettes, Patient smokes 1 pack per day. (Myranda Sep 06, 2016 17:10 JPER) NOTES: Nursing records reviewed, Agree with nursing records, Medication list reviewed. (18:23 LLDO) PHYSICAL EXAM CONSTITUTIONAL: Vital Signs Reviewed, Patient afebrile, Pulse normal, Blood pressure, BP SLIGHTLY LOW. pt says her bp is always low, Respiratory rate normal, Patient appears non toxic, Patient appears pain free, Patient alert and oriented to person, place and time, Nursing notes reviewed. (18:21 LLDO) HEAD: Head exam normal, Head exam included findings of head atraumatic, normocephalic. (18:24 LLDO) EYES: Eye exam normal, Eye exam included findings of eyelids normal to inspection, Pupils equally round and reactive to light, Extraocular muscles intact. (18:24 LLDO) ENT: ENT exam normal, Ear exam normal, Nose exam normal. (18:24 LLDO) NECK: Neck exam normal, Neck exam included findings of normal range of motion, Trachea midline, no meningeal signs, no tenderness. (18:24 LLDO) RESPIRATORY CHEST: Respiratory and chest exam normal, Respiratory exam included findings of, Chest exam included findings of chest movement symmetrical, Chest expansion equal. (18:24 LLDO) &a-1R&a+25V*p+0X*c9346P*c202B*c15G*c2P*p-0X&a-25V&a+1R Name: Jolie Joshi : 1975 F41 MedRec: [id number] AcctNum: [id number] Prepared: Myranda Sep 06, 2016 21:24 by Interface Page 11 of 16 pMD [facility] EMERGENCY RECORD CARDIOVASCULAR: Heart rate regular rate and rhythm, Heart sounds with, diastolic murmur present, grade 2/6. (18:21 LLDO) ABDOMEN FEMALE: Abdominal exam normal, Abdominal exam included findings of abdomen nontender, Bowel sounds normal, no peritoneal signs. (18:24 LLDO) BACK: Back exam normal, Back exam included findings of normal inspection, range of motion normal. (18:24 LLDO) UPPER EXTREMITY: Upper extremity exam normal, Upper extremity exam included findings of inspection normal, Range of motion normal. (18:24 LLDO) LOWER EXTREMITY: Lower extremity exam normal, Lower extremity exam included findings of inspection normal, Range of motion normal. (18:24 LLDO) NEURO: Neuro exam normal, Neuro exam findings include patient oriented to person, place and time, Speech normal, Patito coma scale 15. (18:24 LLDO) SKIN: Skin exam normal, Skin exam included findings of skin warm, dry, and normal in color, no rash. (18:24 LLDO) PSYCHIATRIC: Psychiatric exam normal, Psychiatric exam included findings of patient oriented to person place and time, Normal affect. (18:24 LLDO) EVENTS TRANSFER: Triage to Emergency Main ED -02. (Myranda Sep 06, 2016 17:10 JPER) Removed from Emergency Main ED -02. (21:[address] [facility]) RADIOLOGYINTERPRETATION (18:51 LLDO) BREAD JOCKEY: Preliminary review of x-rays by, Radiologist, neg cxr. DOCTOR NOTES (21:03 LLDO) TEXT: I believe this pain could be angina, even though the labs are good. her ekg suggests a possible mi in the past. her family hx is concerning and her presentation was suspicious for cardiac pain. pt, however is now refusing to go to the [facility] for at least overnight observation. I have strongly urged her to allow us to transfer to [facility] and repeatedly emphasized the dangers/risks of leaving. I have been unsuccessful in convincing her to allow us to transfer. she will sign ama paperwork, and I will give a few pain pills in case this really is just chest wall pain. pt understands the need to return if sx recur. no pain now. PROBLEM LIST No recorded problems DIAGNOSIS (21:09 LLDO) FINAL: PRIMARY: UNSTABLE ANGINA. &a-1R&a+25V*p+0X*t8394A*c202B*c15G*c2P*p-0X&a-25V&a+1R Name: Jolie Joshi : 1975 F41 MedRec: [id number] AcctNum: [id number] Prepared: Myranda Sep 06, 2016 21:24 by Interface Page 12 of 16 pMD [facility] EMERGENCY RECORD DISPOSITION PATIENT: Disposition Type: Eloped, Disposition: Against Medical Advice. (21:09 LLDO) Patient left the department. (21:20 CJEF) INSTRUCTION (21:11 LLDO) DISCHARGE: ANGINA. FOLLOWUP: Follow up with Primary Care Physician as needed. SPECIAL: Follow-up with your PCP. PRESCRIPTION (21:10 LLDO) Tylenol-Codeine #3: TABLET : 300 mg-30 mg : ORAL : Quantity: 1 Unit: tab(s) Route: ORAL Schedule: every 4 hours prn Dispense: 24 Unit: tab(s) May substitute. Refills: No Refills . NOTES: No Refills. IMAGING *EKG: Image captured from scanner. (21:15 CJ) *SUPPLY CHARGE SHEET: Image captured from scanner. (21:[address] [facility]) ADMIN (21:13 [facility]) DIGITAL SIGNATURE: MD Canales Lloyd. RESULTS RADIOLOGY: XR Chest 1 View Portable Observe DT: [place] Sep 06, 2016 18:10, CXRP FRONTAL RADIOGRAPH OF CHEST PORTABLE UPRIGT: Date: 09/06/16 COMPARISON: 08/06/13. HISTORY: Chest pain. FINDINGS: Lungs are clear. Heart and mediastinal contours within normal limits. Osseous structures are grossly unremarkable. Clips in right upper quadrant suggest prior cholecystectomy. IMPRESSION: No acute findings. POS: [facility] . (19:[address] [facility]) &a-1R&a+25V*p+0X*r4989Q*c202B*c15G*c2P*p-0X&a-25V&a+1R Name: Jolie Joshi : 1975 F41 MedRec: [id number] AcctNum: [id number] Prepared: Myranda Sep 06, 2016 21:24 by Interface Page 13 of 16 D [facility] EMERGENCY RECORD LABORATORY: PTT Collection DT: [place] Sep 06, 2016 18:54, See comment below , Anticoagulant? NONE Medical Necessity SUSPECT COAGULOPATHY , PTT 31.0 SEC, Range (22.9-36.1). (19:[address] [facility]) Protime with INR Collection DT: [place] Sep 06, 2016 18:54, See comment below , Anticoagulant? NONE Medical Necessity SUSPECT COAGULOPATHY , Prothrombin Time 12.6 SEC, Range (12.0-14.7), INR-International Normal Ratio 0.9 , ATTENTION: READ CAREFULLY , The, recommended therapeutic ranges for oral anticoagulant treatments are: , , Low Intensity: 1.5 - 2.0 Moderate Intensity: 2.0, - 3.0 High Intensity (1): 2.5 - 3.5 High, Intensity (2): 3.0 - 4.0 CRITICAL: >, 4.0 . (19:[address] [facility]) CBC with Differential Collection DT: Myranda Sep 06, 2016 18:54, White Blood Cell (WBC) Count 9.8 thou/uL, Range (4.8-10.8), *Red Blood Cell (RBC) Count 3.73 - L mill/uL, Range (4.20-5.40), Hemoglobin 12.4 g/dL, Range (12.0-16.0), *Hematocrit 34.1 - L %, Range (36.0-47.0), Mean Corpuscular Volume 91.4 fl, Range (81.0-99.0), *Mean Corpuscular Hemoglobin 33.3 - H pg, Range (27.0-31.0), *Mean Corpuscular HGB CONC 36.5 - H g/dL, Range (32.0-36.0), RBC Distribution Width 11.9 %, Range (11.5-14.5), Platelet Count 350 thou/uL, Range (130-400), Mean Platelet Volume 7.4 fL, Range (7.4-10.4), %Neutrophils 51.2 %, Range (42.0-75.0), %Lymphocytes 36.5 %, Range (21.0-51.0), %Monocytes 6.0 %, Range (0.0-10.0), %Eosinophils 4.6 %, Range (0.0-10.0), *%Basophils 1.7 - H %, Range (0.0-1.0), #Neutrophils 5.0 thou/uL, Range (1.40-6.50), *#Lymphocytes 3.6 - H thou/uL, Range (1.20-3.40), *#Monocytes 0.6 - H thou/uL, Range (0.11-0.59), #Eosinphils 0.5 thou/uL, Range (0.0-0.7), #Basophils 0.2 thou/uL, Range (0.0-0.2). (19:[address] [facility]) CK (CPK) Collection DT: [place] Sep 06, 2016 18:54, CK (CPK) 82 U/L, Range (29-168). (19:[address] [facility]) Comprehensive Metabolic Panel Collection DT: [place] Sep 06, 2016 18:54, Sodium 142 mmol/L, Range (136-145), &a-1R&a+25V*p+0X*z6666W*c202B*c15G*c2P*p-0X&a-25V&a+1R Name: Jolie Joshi : 1975 F41 MedRec: [id number] AcctNum: [id number] Prepared: [place] Sep 06, 2016 21:24 by Interface Page 14 of 16 pMD [facility] EMERGENCY RECORD Potassium 4.3 mmol/L, Range (3.5-5.1), Chloride 102 mmol/L, Range (98-107), Carbon Dioxide 25 mmol/L, Range (22-29), Anion Gap 19 mmol/L, Range (10-20), BUN (Urea Nitrogen) 14 mg/dL, Range (7.0-18.7), *Creatinine 1.11 - H mg/dL, Range (0.6-1.1), Estimated GFR-MDRD 54 , Reference Range for Estimated GFR: Greater than 90, mL/min/1.73 m2 NOTE: The MDRD equation has not been validated for use, with the elderly (over 70 years of age), women, patients with, serious comorbid condition or persons with extremes of body size, muscle, mass, or nutritional status. , Glucose 87 mg/dL, Range (70-105), Calcium 9.2 mg/dL, Range (7.8-10.44), Bilirubin, Total Less than 0.3 mg/dL, Range (0.2-1.2), Protein, Total 6.4 g/dL, Range (6.0-8.3), NOTE: Plasma values are generally 0.3 to 0.5 g/dL higher than serum values, due to the presence of fibrinogen. , Albumin 4.0 g/dL, Range (3.5-5.0), Globulin 2.4 g/dL, Range (2.4-3.5), Alb/Glob Ratio 1.7 g/dL, Range (1.2-2.2), Alkaline Phosphatase 117 U/L, Range (40-150), AST (SGOT) 14 U/L, Range (5-34), ALT (SGPT) 12 U/L, Range (0-55). (19:17 CJEF) Magnesium Collection DT: [place] Sep 06, 2016 18:54, Magnesium 2.3 mg/dL, Range (1.6-2.6), NOTE: Higher values can be expected in females during menses . (19:31 CJEF) CK (CPK) Collection DT: [place] Sep 06, 2016 18:54, CK (CPK) 82 U/L, Range (29-168). (19:31 CJEF) Comprehensive Metabolic Panel Collection DT: [place] Sep 06, 2016 18:54, Sodium 142 mmol/L, Range (136-145), Potassium 4.3 mmol/L, Range (3.5-5.1), Chloride 102 mmol/L, Range (98-107), Carbon Dioxide 25 mmol/L, Range (22-29), Anion Gap 19 mmol/L, Range (10-20), BUN (Urea Nitrogen) 14 mg/dL, Range (7.0-18.7), *Creatinine 1.11 - H mg/dL, Range (0.6-1.1), Estimated GFR-MDRD 54 , Reference Range for Estimated GFR: Greater than 90, mL/min/1.73 m2 NOTE: The MDRD equation has not been validated for use, with the elderly (over 70 years of age), women, patients with, serious comorbid condition or persons with extremes of body size, muscle, mass, or nutritional status. , Glucose 87 mg/dL, Range (70-105), Calcium 9.2 mg/dL, Range (7.8-10.44), Bilirubin, Total Less than 0.3 mg/dL, Range (0.2-1.2), &a-1R&a+25V*p+0X*x0896Y*c202B*c15G*c2P*p-0X&a-25V&a+1R Name: Jolie Joshi : 1975 F41 MedRec: [id number] AcctNum: [id number] Prepared: [place] Sep 06, 2016 21:24 by Interface Page 15 of 16 pMD [facility] EMERGENCY RECORD Protein, Total 6.4 g/dL, Range (6.0-8.3), NOTE: Plasma values are generally 0.3 to 0.5 g/dL higher than serum values, due to the presence of fibrinogen. , Albumin 4.0 g/dL, Range (3.5-5.0), Globulin 2.4 g/dL, Range (2.4-3.5), Alb/Glob Ratio 1.7 g/dL, Range (1.2-2.2), Alkaline Phosphatase 117 U/L, Range (40-150), AST (SGOT) 14 U/L, Range (5-34), ALT (SGPT) 12 U/L, Range (0-55). (19:31 CJ) Cardiac Profile w/CKMB & TropI Collection DT: [place] Sep 06, 2016 18:54, CKMB 0.5 ng/mL, Range (0-6.6), Troponin I Less than 0.010 ng/mL, Range (< 0.028), Reference Range , 0.00 - 0.028 ng/mL Negative 0.029 - 0.29 ng/mL , Indeterminate Greater or Equal to 0.3 ng/mL Strongly suggests MA , . (19:31 CJ) B type Natriuretic Peptide Collection DT: [place] Sep 06, 2016 18:54, B type Natriuretic Peptide 17.9 pg/mL, Range (0-100). (19:31 CJEF) Mauricio: YVETTE=MICHELLE Bae, Jayne TRIANA=MICHELLE Hernández, Alea ORTIZ=MICHELLE Razo, Kathy YORK=MD Parker, Philip &a-1R&a+25V*p+0X*t3561F*c202B*c15G*c2P*p-0X&a-25V&a+1R Name: Jolie Joshi : 1975 0 MedRec: [id number] AcctNum: [id number] Prepared: Myranda Sep 06, 2016 21:24 by Interface Page 16 of 16 pMD [facility] MEDICATION RECONCILIATION You were seen in the Emergency Department on: Myranda Sep 06, 2016 KNOWN ALLERGIES ADVERSE RX TO PHENOBARB (Unconfirmed) PHENobarbital: - SUICIDAL MEDICATIONS GIVEN WHILE IN THE EMERGENCY DEPARTMENT aspirin oral (aspirin) - Dose: 325 milligram(s) : Oral sodium chloride 0.9 % intravenous (0.9 % sodium chloride) - Dose: 1 liter(s) : IV Fluid Infusion sodium chloride 0.9 % intravenous (0.9 % sodium chloride) - Dose: 1 liter(s) : IV Fluid Infusion Duramorph (PF) (morphine sulfate/preservative free) - Dose: 4 milligram(s) : IV Push HOME MEDICATIONS None Notes from the emergency department Reviewed with family Reviewed with patient PRESCRIPTIONS (1) &a-1R&a+25V*p+0X*h5278O*c202B*c15G*c2P*p-0X&a-25V&a+1R Name: Jolie Joshi : 1975 F41 MedRec: [id number] AcctNum: [id number] Prepared: Myranda Sep 06, 2016 21:24 by Interface pMD [facility]
== END 2016-09-06 21:20 | disposition left against medical advice (07) ==
LOC: MADERS 17:04
DX: I20.0 Unstable angina (principal); F17.210 Nicotine dependence, cigarettes, uncomplicated
CPT/HCPCS: 36415; 71010; 80053; 82550; 82553; 83735; 83880; 84484; 85025; 85610; 85730; 93005; 94760; 96361; 96374; J2270; J7050

== ENCOUNTER 2016-09-07 14:52 | Emergency (ER) | payer SELFPAY ==
[2016-09-07] MEDS ORDERED: Mag-Al Plus 1200 MG/1200 MG/120 MG/30 ML UDCUP ONE (15:13)
[2016-09-07] MEDS ORDERED: Fentanyl 100 MCG/2 ML VIAL ONE (15:13)
[2016-09-07] MEDS ORDERED: Ondansetron HCl/PF 4 MG/2 ML Vial ONE (15:13)
[2016-09-07] MEDS ORDERED: Lidocaine Viscous Sol 2% 15 ml UD Cup ONE (15:13)
[2016-09-07] MEDS ORDERED: Aspirin 325 MG TAB ONE (15:13)
[2016-09-07 15:21] LABS: #Basophils 0.1 thou/uL (0.0-0.2); #Eosinphils 0.2 thou/uL (0.0-0.7); #Lymphocytes 2.4 thou/uL (1.20-3.40); #Monocytes 0.5 thou/uL (0.11-0.59); #Neutrophils 5.2 thou/uL (1.40-6.50); %Basophils 1.5 % (0.0-1.0); %Eosinophils 2.7 % (0.0-10.0); %Lymphocytes 28.1 % (21.0-51.0); %Monocytes 6.2 % (0.0-10.0); %Neutrophils 61.6 % (42.0-75.0); Hemoglobin 12.2 g/dL (12.0-16.0); Mean Corpuscular HGB CONC 34.8 g/dL (32.0-36.0); Mean Corpuscular Hemoglobin 32.3 pg (27.0-31.0); Mean Corpuscular Volume 92.6 fl (81.0-99.0); Mean Platelet Volume 7.4 fL (7.4-10.4); Platelet Count 346 thou/uL (130-400); RBC Distribution Width 12.2 % (11.5-14.5); Red Blood Cell (RBC) Count 3.78 mill/uL (4.20-5.40); White Blood Cell (WBC) Count 8.5 thou/uL (4.8-10.8)
--- NOTE | 2016-09-07 15:36 | RAD ---
EXAM: ONE VIEW CHEST HISTORY: Chest pain. COMPARISON: 09/06/2016 FINDINGS: PORTABLE UPRIGHT CHEST: Normal cardiac silhouette. Pulmonary vessels and hilum are normal. Costophrenic angles are clear. No masses or consolidation. No pneumothorax or osseous abnormalities. IMPRESSION: No acute cardiopulmonary process. POS: [facility]
[2016-09-07 15:37] LABS: Anion Gap 19 mmol/L (10-20)
[2016-09-07 15:39] LABS: CKMB 0.9 ng/mL (0-6.6); Troponin I Less than 0.010 ng/mL (< 0.028)
[2016-09-07 15:51] LABS: BUN (Urea Nitrogen) 9 mg/dL (7.0-18.7); Bilirubin, Total 0.4 mg/dL (0.2-1.2); Calc. Creatinine Clearance 0 mL/min (70-130); Calcium 9.5 mg/dL (7.8-10.44); Carbon Dioxide 22 mmol/L (22-29); Chloride 104 mmol/L (98-107); Estimated GFR-MDRD 90; Glucose 97 mg/dL (70-105); Potassium 3.6 mmol/L (3.5-5.1); Sodium 141 mmol/L (136-145)
[2016-09-07 15:52] LABS: ALT (SGPT) 101 U/L (0-55); AST (SGOT) 86 U/L (5-34); Albumin 4.5 g/dL (3.5-5.0); Alkaline Phosphatase 132 U/L (40-150); Globulin 2.4 g/dL (2.4-3.5); Protein, Total 6.9 g/dL (6.0-8.3)
[2016-09-07 17:12] LABS: CKMB 0.6 ng/mL (0-6.6); Troponin I Less than 0.010 ng/mL (< 0.028)
--- NOTE | 2016-09-07 17:42 | ERRECORD ---
[facility] EMERGENCY RECORD HPI CHEST PAIN (15:06 SHAN) CHIEF COMPLAINT: Patient presents for evaluation of chest pain, ongoing. HISTORIAN: History provided by patient, Patient states has had pain since early yesterday; worse today; patient refused referral yesterday. QUALITY: Pain is sharp in nature. TIME COURSE: Gradual onset of symptoms. ROS (15:08 SHAN) CONSTITUTIONAL: Negative constitutional review of systems, Historian denies chills, denies fever. EYES: Negative eye review of systems. ENT: Negative ears, nose, throat review of systems. CARDIOVASCULAR: Negative cardiovascular review of systems, Historian relates chest pain, Historian denies palpitations. RESPIRATORY: Negative respiratory review of systems, Historian denies cough, denies shortness of breath. GI: Negative gastrointestinal review of systems, Historian denies abdominal pain, denies constipation, denies diarrhea. MUSCULOSKELETAL: Negative musculoskeletal review of systems. SKIN: Negative skin review of systems. NEUROLOGIC: Negative neurologic review of systems. ENDOCRINE: Negative endocrine review of systems. HEMO/LYMPHATIC: Normal hematologic/lymphatic system review. PSYCHIATRIC: Negative psychiatric review of systems. NOTES: All other ROS is negative except as listed in HPI. PAST MEDICAL HISTORY MEDICAL HISTORY: Notes: VERIFIED 09-06-16, Past medical history includes neurological disease, generalized seizures. (16:12 SFRE) FEMALE SURGICAL HISTORY: VERIFIED 09-06-16, Surgical history of cholecystectomy, Surgical history of hysterectomy. (16:12 SFRE) PSYCHIATRIC HISTORY: Notes: DENIES. (16:12 SFRE) SOCIAL HISTORY: Social History includes VERIFIED 09-06-16, Patient denies alcohol use, Patient is a former drug user, Drug history notes: CRACK, Patient currently uses tobacco, smokes cigarettes, Patient smokes 1 pack per day. (16:12 SFRE) NOTES: I have reviewed and agree with the PMH/PSxH/FamHx/SocHx obtained by the nurse. (15:08 SHAN) KNOWN ALLERGIES ADVERSE RX TO PHENOBARB (Unconfirmed) PHENobarbital: - SUICIDAL CURRENT MEDICATIONS &a-1R&a+25V*p+0X*[id number]*c202B*c15G*c2P*p-0X&a-25V&a+1R Name: Walt Joshiciara Bowser : 1975 F41 MedRec: [id number] AcctNum: [id number] Prepared: WedSep 07, 2016 17:40 by Interface Page 1 of 4 pMD [facility] EMERGENCY RECORD No recorded medications VITAL SIGNS VITAL SIGNS: BP: 123/64, Pulse: 86, Resp: 18, Temp: 97.7 (Tympanic), Pain: 10, O2 sat: 100 on Room Air, Time: 09/07/2016 15:00. (15:00 SFRE) BP: 106/60, Pulse: 89, Resp: 18, Temp: 97.7 (Tympanic), Pain: 0, O2 sat: 95, Time: 09/07/2016 15:30. (15:30 SFRE) BP: 90/55, Pulse: 75, Resp: 16, Pain: 0, O2 sat: 97 on Room Air, Time: 09/07/2016 15:45. (15:45 SFRE) BP: 84/50, Pulse: 61, Resp: 18, O2 sat: 98 on Room Air, Time: 09/07/2016 16:15. (16:15 SFRE) BP: 83/45, Pulse: 67, O2 sat: 97 on Room Air, Time: 09/07/2016 16:30. (16:30 SFRE) BP: 99/54, Pulse: 61, O2 sat: 100 on Room Air, Time: 09/07/2016 16:45. (16:45 SFRE) BP: 119/61, Pulse: 82, Resp: 22, Temp: 97.7 (Tympanic), Pain: 10, O2 sat: 100 on Room Air, Time: 09/07/2016 14:56. (14:56 SFRE) PHYSICAL EXAM (15:08 SHAN) CONSTITUTIONAL: Vital signs reviewed, Patient appears non toxic, Patient alert and oriented to person, place and time, Pt is in no apparent distress. HEAD: Head exam included findings of head atraumatic, normocephalic. EYES: Eye exam included findings of eyelids normal to inspection, Pupils equally round and reactive to light, Extraocular muscles intact. ENT: ENT exam normal, Nose exam normal, no nasal deformity, no bleeding from nares, Pharynx exam normal, Mouth exam normal, mucous membranes moist. NECK: Neck exam included findings of normal range of motion, Trachea midline. RESPIRATORY CHEST: Respiratory and chest exam normal, Breath sounds clear, No wheezing, No rales, Chest exam included findings of chest movement symmetrical, Chest expansion equal. CARDIOVASCULAR: Cardiovascular assessment normal, Cardiovascular exam included findings of heart rate regular rate and rhythm, Heart sounds normal. ABDOMEN FEMALE: Abdominal exam included findings of abdomen nontender, Bowel sounds normal, no mass, no pulsatile masses, no peritoneal signs. BACK: Back exam included findings of normal inspection, range of motion normal, no costovertebral angle tenderness. UPPER EXTREMITY: Upper extremity exam included findings of inspection normal, Range of motion normal. LOWER EXTREMITY: Lower extremity exam included findings of inspection normal, Range of motion normal. NEURO: Neuro exam findings include patient oriented to person, place and time, Speech normal, no focal motor deficits, no focal &a-1R&a+25V*p+0X*c6456K*c202B*c15G*c2P*p-0X&a-25V&a+1R Name: Jolie Joshi : 1975 F41 MedRec: [id number] AcctNum: [id number] Prepared: WedSep 07, 2016 17:40 by Interface Page 2 of 4 pMD [facility] EMERGENCY RECORD sensory deficits. SKIN: Skin exam included findings of skin warm, dry, and normal in color. LYMPHATIC: Lymphatic exam normal. PSYCHIATRIC: Psychiatric exam included findings of patient oriented to person place and time, Normal affect. MEDICATION ADMINISTRATION SUMMARY Drug Name: Normal Saline, Dose Ordered: 1 L, Route: IV Push, Status: Given, Time: 16:33 09/07/2016, Drug Name: Protonix oral, Dose Ordered: 1 tab(s), Route: Oral, Status: Given, Time: 16:05 09/07/2016, Drug Name: aspirin oral, Dose Ordered: 1 tab(s), Route: Oral, Status: Given, Time: 15:24 09/07/2016, Drug Name: fentaNYL (PF) intravenous, Dose Ordered: 100 mcg, Route: IV Push, Status: Given, Time: 15:23 09/07/2016, Drug Name: GI COCKTAIL, Dose Ordered: 40 mL, Route: Oral, Status: Given, Time: 15:23 09/07/2016, Drug Name: Zofran intravenous, Dose Ordered: 4 mg, Route: IV Push, Status: Given, Time: 15:23 09/07/2016, Detailed record available in Medication Service section. DOCTOR NOTES TEXT: Patient was in yesterday; refused transfer for chest pain. EKG read as age indeterminant possible anterior mi. Today computer read is normal. Difference is V3 is upright normally today; suspect some degree of precordial placement issues. (15:11 SHAN) Pain is much more compatible with gerd; cardiac results neg and repeat later still neg. (17:19 SHAN) DATA REVIEWED: Lab data reviewed, Reviewed EKG. (15:11 SHAN) PROBLEM LIST No recorded problems DIAGNOSIS (17:24 SHAN) FINAL: PRIMARY: atypical chest pain, ADDITIONAL: GERD WITH ESOPHAGITIS. PRESCRIPTION (17:25 SHAN) Protonix oral: TABLET, DELAYED RELEASE (ENTERIC COATED) : 40 mg : ORAL : Quantity: 1 Unit: tab(s) Route: ORAL Schedule: once a day Dispense: 30 Unit: tab(s) May substitute. Refills: No Refills . NOTES: No Refills. DISPOSITION PATIENT: Disposition Type: Discharge, Disposition: *Discharge Home. (17:24 SHAN) Patient left the department. (17:39 SCHI) &a-1R&a+25V*p+0X*f3021I*c202B*c15G*c2P*p-0X&a-25V&a+1R Name: Jolie Joshi : 1975 F41 MedRec: [id number] AcctNum: [id number] Prepared: WedSep 07, 2016 17:40 by Interface Page 3 of 4 pMD [facility] EMERGENCY RECORD Mauricio: NILSON=MICHELLE Garcia, Stephanie BECKER=MICHELLE Pearson, Edwina MENENDEZ=MD Paxton, Mykel &a-1R&a+25V*p+0X*b9027X*c202B*c15G*c2P*p-0X&a-25V&a+1R Name: Jolie Joshi : 1975 F41 MedRec: [id number] AcctNum: [id number] Prepared: WedSep 07, 2016 17:40 by Interface Page 4 [facility] 4 [facility]MD [facility]
--- NOTE | 2016-09-07 17:49 | PICIS ---
[facility] EMERGENCY RECORD TRIAGE (14:58 SFRE) TRIAGE NOTES: CHEST PAIN. (14:58 SFRE) PATIENT: NAME: Jolie Joshi, AGE: 41, GENDER: female, : Sun 1975, TIME OF GREET: WedSep 07, 2016 14:52, PREFERRED LANGUAGE: Arabic, ETHNICITY: Not or , ECODE BILLING MAP: [facility], SSN: [id number], Zip Code: [address], KG WEIGHT: 40.82, PHONE: , , , PERSON ID: [id number], PCP: NO PCP. (14:58 SFRE) COMPLAINT: CHEST PAIN,NAUSEA. (14:58 SFRE) ADMISSION: URGENCY: 3 Urgent, ADMISSION SOURCE: Home, TRANSPORT: Walk-in, BED: ED -01. (14:58 SFRE) ASSESSMENT: Symptoms began 09/06/2016. (16:12 SFRE) PAIN: Patient complains of pain described as, throbbing, Location CHEST, Pain is intermittent, No aggravating factors, No relieving factors. (16:12 SFRE) SIRS SCORING: Heart Rate 55-109 (0), Temp range 96.8-101.1 (0), respiratory rate 12-24 (0), Mental Status altered: no (0). (16:12 SFRE) TRIAGE SCREENING: Patient denies suicidal ideation, Patient denies presence of domestic violence. (16:12 SFRE) PROVIDERS: TRIAGE NURSE: Edwina Pearson RN. (14:58 SFRE) PREVIOUS VISIT ALLERGIES: PHENobarbital. (14:58 SFRE) PHENobarbital. (16:12 SFRE) KNOWN ALLERGIES ADVERSE RX TO PHENOBARB (Unconfirmed) PHENobarbital: - SUICIDAL CURRENT MEDICATIONS No recorded medications VITAL SIGNS VITAL SIGNS: BP: 123/64, Pulse: 86, Resp: 18, Temp: 97.7 (Tympanic), Pain: 10, O2 sat: 100 on Room Air, Time: 09/07/2016 15:00. (15:00 SFRE) BP: 106/60, Pulse: 89, Resp: 18, Temp: 97.7 (Tympanic), Pain: 0, O2 sat: 95, Time: 09/07/2016 15:30. (15:30 SFRE) BP: 90/55, Pulse: 75, Resp: 16, Pain: 0, O2 sat: 97 on Room Air, Time: 09/07/2016 15:45. (15:45 SFRE) BP: 84/50, Pulse: 61, Resp: 18, O2 sat: 98 on Room Air, Time: 09/07/2016 16:15. (16:15 SFRE) BP: 83/45, Pulse: 67, O2 sat: 97 on Room Air, Time: 09/07/2016 16:30. (16:30 SFRE) BP: 99/54, Pulse: 61, O2 sat: 100 on Room Air, Time: 09/07/2016 16:45. (16:45 SFRE) BP: 119/61, Pulse: 82, Resp: 22, Temp: 97.7 (Tympanic), Pain: 10, O2 sat: 100 on Room Air, Time: 09/07/2016 14:56. (14:56 SFRE) &a-1R&a+25V*p+0X*f2007V*c202B*c15G*c2P*p-0X&a-25V&a+1R Name: Jolie Joshi : 1975 F41 MedRec: [id number] AcctNum: [id number] Prepared: WedSep 07, 2016 17:46 by Interface Page 1 of 11 pMD [facility] EMERGENCY RECORD NURSING ASSESSMENT: CARDIOVASCULAR (16:47 SFRE) CONSTITUTIONAL: Patient arrives ambulatory, Gait steady, History obtained from patient, Patient appears, anxious, Patient cooperative, Patient alert, Oriented to person, place and time, Skin warm, Skin dry, Skin normal in color, Mucous membranes pink, Mucous membranes moist, Patient is well-groomed, Patient complains of CHEST PAIN. PAIN: sharp pain, midsternal, to the left chest, intermittent, on a scale 0-10 patient rates pain as 10, PATIENT REPORTS CP THAT STARTED YESTERDAY AND WAS SEEN YESTERDAY FOR SAME BUT REFUSED TRANSFER. PT REPORTS PAIN IS NOT SEVERE YESTERDAY, Pain exacerbated by nothing, Pain relieved by, opiate medications. CARDIOVASCULAR: Cardiovascular assessment findings include heart rate normal, Heart rhythm normal sinus. RESPIRATORY/CHEST: Breath sounds clear, Respiratory assessment findings include respiratory effort easy, Respirations regular, Conversing normally, Neck and chest exam findings include trachea midline, Chest expansion equal, Chest movement symmetrical. SAFETY: Side rails up, Cart/Stretcher in lowest position, Family at bedside, Call light within reach, Hospital ID band on. NURSING PROCEDURE: RIVER DRIVER (14:59 SFRE) RIVER DRIVER: Cardiac monitoring indicated for complaint of chest pain, Patient placed on client advocate, Heart rate: 84, showing normal sinus rhythm, without ectopy, Patient placed on non-invasive blood pressure monitor, Patient placed on continuous pulse oximetry, Adult/pediatric oxisensor applied, Oxygen saturation 94%. SAFETY: Side rails up, Cart/Stretcher in lowest position, Family at bedside, Call light within reach, Hospital ID band on. NURSING PROCEDURE: DISCHARGE NOTE (17:38 SCHI) DISCHARGE: Patient discharged to home, ambulating without assistance, family driving, accompanied by other family member, Summary of Care printed/ provided, Patient requested and was provided an electronic copy of Discharge Instructions, Transition record given to patient, Discharge instructions given to patient, Simple or moderate discharge teaching performed, Prescriptions given and instructions on side effects given, Medication reconciliation form given, Above person(s) verbalized understanding of discharge instructions and follow-up care, Patient treated and evaluated by physician. BELONGINGS: Belongings and valuables with patient at time of discharge include:, Belongings remain with patient, Valuables remain with patient. SAFETY: Side rails up, Cart/Stretcher in lowest position, Family at bedside, Hospital ID band on. NURSING PROCEDURE: EKG CHART (15:02 SFRE) &a-1R&a+25V*p+0X*y5340P*c202B*c15G*c2P*p-0X&a-25V&a+1R Name: Jolie Joshi : 1975 F41 MedRec: [id number] AcctNum: [id number] Prepared: WedSep 07, 2016 17:46 by Interface Page 2 of 11 pMD [facility]GENC[facility] RECORD EKG: EKG indicated for complaint of chest pain, 12 lead EKG performed on the left chest, done by MICHELLE BUNDY, first EKG. FOLLOW-UP: After procedure, EKG for interpretation given to Dr. MATTA. SAFETY: Side rails up, Cart/Stretcher in lowest position, Family at bedside, Call light within reach, Hospital ID band on. NURSING PROCEDURE: IV IV SITE 1: IV therapy indicated for hydration, IV therapy indicated for medication administration, IV established, to the right antecubital, using a 20 gauge catheter, in one attempt, Saline lock established, Flushed with normal saline (mls): 5CC, Labs drawn at time of placement, labeled in the presence of the patient and sent to lab. (15:10 SFRE) FOLLOW-UP SITE 1: After procedure, no drainage at IV site, After procedure, no swelling at IV site, After procedure, no redness at IV site. (15:10 SFRE) After procedure, no drainage at IV site, After procedure, no swelling at IV site, After procedure, no redness at IV site, IV discontinued, due to patient being discharged, catheter intact. (17:38 SCHI) NURSING PROCEDURE: NURSE NOTES NURSES NOTES: Notes: REPORTS CHEST PAIN HAS RETURNED AFTER AMBULATING TO THE BR. (16:04 SFRE) Notes: LABS PULLED FROM IV SITE BY RN FOR SERIAL CARDIAC ENZYMES. (16:40 MDOKSANA) Notes: RESTING QUIETLY WITH NAD. DISPO PENDING ON REPEAT CARDIAC MARKERS. (16:45 SFRE) ORDER DETAILS Order Name: RIVER DRIVER ED, Status: Done, Time: 15:09 09/07/2016, User: ROSITA, - Ordered for: MD Matta Stanley, - Entered by: MD Matta Stanley - Francie Sep 07, 2016 15:01, - Quantity: 1, Order Name: Cardiac Profile w/CKMB & Troponin - I, Status: Active, Time: 15:01 09/07/2016, User: SHON, - Ordered for: MD Matta Stanley, - Entered by: MD Matta Stanley - Francie Sep 07, 2016 15:01, - Quantity: 1, Order Name: Cardiac Profile w/CKMB & Troponin - I, Status: Active, Time: 16:29 09/07/2016, User: SHON - Ordered for: MD Matta Stanley, - Entered by: MD Matta Stanley - Mon Sep 07, 2016 16:29, - Quantity: 1, Order Name: CBC with Differential, Status: Active, Time: 15:01 09/07/2016, User: SHON, - Ordered for: MD Matta Stanley, - Entered by: MD Matta Stanley - Mon Sep 07, 2016 15:01, &a-1R&a+25V*p+0X*x9254W*c202B*c15G*c2P*p-0X&a-25V&a+1R Name: Jolie Joshi : 1975 F41 MedRec: [id number] AcctNum: [id number] Prepared: WedSep 07, 2016 17:46 by Interface Page 3 of 11 pMD [facility] EMERGENCY RECORD - Quantity: 1, Order Name: Comprehensive Metabolic Panel, Status: Active, Time: 15:01 09/07/2016, User: SHON, - Ordered for: MD Matta Stanley, - Entered by: MD Matta Stanley - Mon Sep 07, 2016 15:01, - Quantity: 1, Order Name: EKG 12 Lead in Emergency Room, Status: Active, Time: 15:01 09/07/2016, User: SHON, - Ordered for: MD Matta Stanley, - Entered by: MD Matta Stanley - Mon Sep 07, 2016 15:01, - Quantity: 1, Order Name: SALINE LOCK, Status: Done, Time: 15:09 09/07/2016, User: ROSITA, - Ordered for: MD Matta Stanley, - Entered by: MD Matta Stanley - Mon Sep 07, 2016 15:01, - Quantity: 1, Order Name: XR Chest 1 View Portable, Status: Active, Time: 15:01 09/07/2016, User: SHON, - Ordered for: MD Matta Stanley, - Entered by: MD Matta Stanley - Mon Sep 07, 2016 15:01, - Quantity: 1. MEDICATION ADMINISTRATION SUMMARY Drug Name: Normal Saline, Dose Ordered: 1 L, Route: IV Push, Status: Given, Time: 16:33 09/07/2016, Drug Name: Protonix oral, Dose Ordered: 1 tab(s), Route: Oral, Status: Given, Time: 16:05 09/07/2016, Drug Name: aspirin oral, Dose Ordered: 1 tab(s), Route: Oral, Status: Given, Time: 15:24 09/07/2016, Drug Name: fentaNYL (PF) intravenous, Dose Ordered: 100 mcg, Route: IV Push, Status: Given, Time: 15:23 09/07/2016, Drug Name: GI COCKTAIL, Dose Ordered: 40 mL, Route: Oral, Status: Given, Time: 15:23 09/07/2016, Drug Name: Zofran intravenous, Dose Ordered: 4 mg, Route: IV Push, Status: Given, Time: 15:23 09/07/2016, Detailed record available in Medication Service section. MEDICATION SERVICE aspirin oral: Order: aspirin oral (aspirin) - Dose: 1 tab(s) : Oral Schedule: Now Ordered by: Mykel Matta MD Entered by: Mykel Matta MD WedSep 07, 2016 15:02 , Acknowledged by: Edwina Pearson RN WedSep 07, 2016 15:11 Documented as given by: Edwina Pearson RN WedSep 07, 2016 15:24 Patient, Medication, Dose, Route and Time verified prior to administration. Amount given: 325MG, Site: Medication administered P.O., Correct patient, time, route, dose and medication confirmed prior to &a-1R&a+25V*p+0X*h2137T*c202B*c15G*c2P*p-0X&a-25V&a+1R Name: Jolie Joshi : 1975 F41 MedRec: [id number] AcctNum: [id number] Prepared: WedSep 07, 2016 17:46 by Interface Page 4 of 11 pMD [facility] EMERGENCY RECORD administration, Patient advised of actions and side-effects prior to administration, Allergies confirmed and medications reviewed prior to administration, Patient in position of comfort, Side rails up, Cart in lowest position, Family at bedside. fentaNYL (PF) intravenous: Order: fentaNYL (PF) intravenous (fentanyl citrate/preservative free) - Dose: 100 mcg : IV Push Schedule: Now Ordered by: Mykel Matta MD Entered by: Mykel Matta MD WedSep 07, 2016 15:03 , Acknowledged by: Edwina Pearson RN WedSep 07, 2016 15:11. fentaNYL (PF) intravenous: Order: fentaNYL (PF) intravenous (fentanyl citrate/preservative free) - Dose: 100 mcg : IV Push Schedule: Now Ordered by: Mykel Matta MD Entered by: Mykel Matta MD WedSep 07, 2016 15:03 , Acknowledged by: Edwina Pearson RN WedSep 07, 2016 15:11 Documented as given by: Edwina Pearson RN WedSep 07, 2016 15:23 Patient, Medication, Dose, Route and Time verified prior to administration. Amount given: 100MCG, IV SITE #1 IVP, subsequent different medication, Awake and alert- acceptable, Catheter placement confirmed via flush prior to administration, IV site without signs or symptoms of infiltration during medication administration, No swelling during administration, No drainage during administration, IV flushed after administration, Correct patient, time, route, dose and medication confirmed prior to administration, Patient advised of actions and side-effects prior to administration, Allergies confirmed and medications reviewed prior to administration, Patient in position of comfort, Side rails up, Cart in lowest position, Family at bedside. GI COCKTAIL: Order: GI COCKTAIL - Dose: 40 mL : Oral Lidocaine Viscous (lidocaine HCl) [10 mL] MAG-AL (magnesium hydroxide/aluminum hydroxide) [30 mL] Ordered by: Mykel Matta MD Entered by: Mykel Matta MD WedSep 07, 2016 15:04 , Acknowledged by: Edwina Pearson RN WedSep 07, 2016 15:11 Documented as given by: Edwina Pearson RN WedSep 07, 2016 15:23 Patient, Medication, Dose, Route and Time verified prior to administration. Amount given: 40ML, Site: Medication administered P.O., Patient appears Awake and alert- acceptable, Correct patient, time, route, dose and medication confirmed prior to administration, Patient advised of actions and side-effects prior to administration, Allergies confirmed and medications reviewed prior to administration, Patient in position of comfort, Side rails up, Cart in lowest position, Family at bedside. Normal Saline: Order: Normal Saline (0.9 % sodium chloride) - Dose: 1 L : IV Push Schedule: Bolus &a-1R&a+25V*p+0X*t0728Q*c202B*c15G*c2P*p-0X&a-25V&a+1R Name: Jolie Joshi : 1975 F41 MedRec: [id number] AcctNum: [id number] Prepared: WedSep 07, 2016 17:46 by Interface Page 5 of 11 pMD [facility] EMERGENCY RECORD Ordered by: Mykel Matta MD Entered by: Mykel Matta MD WedSep 07, 2016 16:30 Documented as given by: Edwina Pearson RN WedSep 07, 2016 16:33 Patient, Medication, Dose, Route and Time verified prior to administration. Amount given: 1L, IV SITE #1 IV fluids established for hydration, IV SITE #1 into right antecubital, IV SITE #1 1st bag hung, amount 1 Liter hung, IV SITE #1 bolus of 1000 ml established, IV SITE #1 Rate of bolus, wide open, via primary tubing, via pump tubing, Awake and alert- acceptable, Catheter placement confirmed via flush prior to administration, IV site without signs or symptoms of infiltration during medication administration, No swelling during administration, No drainage during administration, IV flushed after administration, Correct patient, time, route, dose and medication confirmed prior to administration, Patient advised of actions and side-effects prior to administration, Allergies confirmed and medications reviewed prior to administration, Patient in position of comfort, Side rails up, Cart in lowest position, Family at bedside. Protonix oral: Order: Protonix oral (pantoprazole sodium) - Dose: 1 tab(s) : Oral Schedule: Now Ordered by: Mykel Matta MD Entered by: Mykel Matta MD WedSep 07, 2016 16:01 , Acknowledged by: Edwina Pearson RN WedSep 07, 2016 16:04 Documented as given by: Edwina Pearson RN WedSep 07, 2016 16:05 Patient, Medication, Dose, Route and Time verified prior to administration. Amount given: 40MG, Site: Medication administered P.O., Patient appears Awake and alert- acceptable, Correct patient, time, route, dose and medication confirmed prior to administration, Patient advised of actions and side-effects prior to administration, Allergies confirmed and medications reviewed prior to administration, Patient in position of comfort, Side rails up, Cart in lowest position, Family at bedside. Zofran intravenous: Order: Zofran intravenous (ondansetron HCl) - Dose: 4 mg : IV Push Schedule: Now Ordered by: Mykel Matta MD Entered by: Mykel Matta MD WedSep 07, 2016 15:06 , Acknowledged by: Edwina Pearson RN WedSep 07, 2016 15:11 Documented as given by: Edwina Pearson RN WedSep 07, 2016 15:23 Patient, Medication, Dose, Route and Time verified prior to administration. Amount given: 4MG, IV SITE #1 IVP, initial medication, Awake and alert- acceptable, Catheter placement confirmed via flush prior to administration, IV site without signs or symptoms of infiltration during medication administration, No swelling during administration, No drainage during administration, IV flushed after administration, Correct patient, time, route, dose and medication confirmed prior to administration, Patient advised of actions and side-effects prior to &a-1R&a+25V*p+0X*i6210E*c202B*c15G*c2P*p-0X&a-25V&a+1R Name: Jolie Joshi : 1975 F41 MedRec: [id number] AcctNum: [id number] Prepared: WedSep 07, 2016 17:46 by Interface Page 6 of 11 pMD [facility] EMERGENCY RECORD administration, Allergies confirmed and medications reviewed prior to administration, Patient in position of comfort, Side rails up, Cart in lowest position, Family at bedside. HPI CHEST PAIN (15:06 ) CHIEF COMPLAINT: Patient presents for evaluation of chest pain, ongoing. HISTORIAN: History provided by patient, Patient states has had pain since early yesterday; worse today; patient refused referral yesterday. QUALITY: Pain is sharp in nature. TIME COURSE: Gradual onset of symptoms. ROS (15:08 SHON) CONSTITUTIONAL: Negative constitutional review of systems, Historian denies chills, denies fever. EYES: Negative eye review of systems. ENT: Negative ears, nose, throat review of systems. CARDIOVASCULAR: Negative cardiovascular review of systems, Historian relates chest pain, Historian denies palpitations. RESPIRATORY: Negative respiratory review of systems, Historian denies cough, denies shortness of breath. GI: Negative gastrointestinal review of systems, Historian denies abdominal pain, denies constipation, denies diarrhea. MUSCULOSKELETAL: Negative musculoskeletal review of systems. SKIN: Negative skin review of systems. NEUROLOGIC: Negative neurologic review of systems. ENDOCRINE: Negative endocrine review of systems. HEMO/LYMPHATIC: Normal hematologic/lymphatic system review. PSYCHIATRIC: Negative psychiatric review of systems. NOTES: All other ROS is negative except as listed in HPI. PAST MEDICAL HISTORY MEDICAL HISTORY: Notes: VERIFIED 09-06-16, Past medical history includes neurological disease, generalized seizures. (16:12 SFRE) FEMALE SURGICAL HISTORY: VERIFIED 09-06-16, Surgical history of cholecystectomy, Surgical history of hysterectomy. (16:12 SFRE) PSYCHIATRIC HISTORY: Notes: DENIES. (16:12 SFRE) SOCIAL HISTORY: Social History includes VERIFIED 09-06-16, Patient denies alcohol use, Patient is a former drug user, Drug history notes: CRACK, Patient currently uses tobacco, smokes cigarettes, Patient smokes 1 pack per day. (16:12 SFRE) NOTES: I have reviewed and agree with the PMH/PSxH/FamHx/SocHx obtained by the nurse. (15:08 SHAN) PHYSICAL EXAM (15:08 SHON) &a-1R&a+25V*p+0X*q0687Q*c202B*c15G*c2P*p-0X&a-25V&a+1R Name: Jolie Joshi : 1975 F41 MedRec: [id number] AcctNum: [id number] Prepared: WedSep 07, 2016 17:46 by Interface Page 7 of 11 pMD [facility] EM[facility]GENC[facility] RECORD CONSTITUTIONAL: Vital signs reviewed, Patient appears non toxic, Patient alert and oriented to person, place and time, Pt is in no apparent distress. HEAD: Head exam included findings of head atraumatic, normocephalic. EYES: Eye exam included findings of eyelids normal to inspection, Pupils equally round and reactive to light, Extraocular muscles intact. ENT: ENT exam normal, Nose exam normal, no nasal deformity, no bleeding from nares, Pharynx exam normal, Mouth exam normal, mucous membranes moist. NECK: Neck exam included findings of normal range of motion, Trachea midline. RESPIRATORY CHEST: Respiratory and chest exam normal, Breath sounds clear, No wheezing, No rales, Chest exam included findings of chest movement symmetrical, Chest expansion equal. CARDIOVASCULAR: Cardiovascular assessment normal, Cardiovascular exam included findings of heart rate regular rate and rhythm, Heart sounds normal. ABDOMEN FEMALE: Abdominal exam included findings of abdomen nontender, Bowel sounds normal, no mass, no pulsatile masses, no peritoneal signs. BACK: Back exam included findings of normal inspection, range of motion normal, no costovertebral angle tenderness. UPPER EXTREMITY: Upper extremity exam included findings of inspection normal, Range of motion normal. LOWER EXTREMITY: Lower extremity exam included findings of inspection normal, Range of motion normal. NEURO: Neuro exam findings include patient oriented to person, place and time, Speech normal, no focal motor deficits, no focal sensory deficits. SKIN: Skin exam included findings of skin warm, dry, and normal in color. LYMPHATIC: Lymphatic exam normal. PSYCHIATRIC: Psychiatric exam included findings of patient oriented to person place and time, Normal affect. EVENTS TRANSFER: Triage to Emergency Main ED -01. (WedSep 07, 2016 14:58 SFRE) Removed from [facility] -01. (17:39 [facility]) DOCTOR NOTES TEXT: Patient was in yesterday; refused transfer for chest pain. EKG read as age indeterminant possible anterior mi. Today computer read is normal. Difference is V3 is upright normally today; suspect some degree of precordial placement issues. (15:11 SHAN) Pain is much more compatible with gerd; cardiac results neg and repeat later still neg. (17:19 SHAN) DATA REVIEWED: Lab data reviewed, Reviewed EKG. (15:11 SHAN) &a-1R&a+25V*p+0X*t8023D*c202B*c15G*c2P*p-0X&a-25V&a+1R Name: Jolie Joshi : 1975 F41 MedRec: [id number] AcctNum: [id number] Prepared: WedSep 07, 2016 17:46 by Interface Page 8 of 11 pMD [facility] EMERGENC[facility] RECORD PROBLEM LIST No recorded problems DIAGNOSIS (17:24 SHAN) FINAL: PRIMARY: atypical chest pain, ADDITIONAL: GERD WITH ESOPHAGITIS. DISPOSITION PATIENT: Disposition Type: Discharge, Disposition: *Discharge Home. (17:24 SHAN) Patient left the department. (17:39 [facility]) INSTRUCTION (17:27 SHAN) DISCHARGE: ATYPICAL CHEST PAIN UNKNOWN CAUSE, GERD ADULT. SPECIAL: 1. take the one a day stomach acid suppressant 2. followup with a regular provider soon and finish workup as an outpatient 3. return if problems occur 4. understand that although there does not appear to be a heart attack at this time; a referral to [facility] was the best way to finish this workup; since you do not wish to go; please see a provider soon to set the stomach and heart tests up. PRESCRIPTION (17:25 SHAN) Protonix oral: TABLET, DELAYED RELEASE (ENTERIC COATED) : 40 mg : ORAL : Quantity: 1 Unit: tab(s) Route: ORAL Schedule: once a day Dispense: 30 Unit: tab(s) May substitute. Refills: No Refills . NOTES: No Refills. IMAGING *DISCHARGE INSTRUCTIONS RECEIPT: Image captured from scanner. (15:46 SFRE) Image captured from scanner. (17:40 SCHI) *SUPPLY CHARGE SHEET: Image captured from scanner. (17:40 SCHI) VITAL SIGNS: Image captured from scanner. (17:41 SCHI) ADMIN (17:39 SCHI) DIGITAL SIGNATURE: MICHELLE Garcia, Stephanie. RESULTS RADIOLOGY: XR Chest 1 View Portable Observe DT: WedSep 07, 2016 15:03, CXRP EXAM: ONE VIEW CHEST HISTORY: Chest pain. &a-1R&a+25V*p+0X*b9084Q*c202B*c15G*c2P*p-0X&a-25V&a+1R Name: Jolie Joshi : 1975 F41 MedRec: [id number] AcctNum: [id number] Prepared: WedSep 07, 2016 17:46 by Interface Page 9 of 11 pMD [facility] EM[facility]GENC[facility] RECORD COMPARISON: 09/06/2016 FINDINGS: PORTABLE UPRIGHT CHEST: Normal cardiac silhouette. Pulmonary vessels and hilum are normal. Costophrenic angles are clear. No masses or consolidation. No pneumothorax or osseous abnormalities. IMPRESSION: No acute cardiopulmonary process. POS: [facility] . (16:30 [facility]) LABORATORY: Cardiac Profile w/CKMB & TropI Collection DT: WedSep 07, 2016 15:13, CKMB 0.9 ng/mL, Range (0-6.6), Troponin I Less than 0.010 ng/mL, Range (< 0.028), Reference Range , 0.00 - 0.028 ng/mL Negative 0.029 - 0.29 ng/mL , Indeterminate Greater or Equal to 0.3 ng/mL Strongly suggests AL , . (15:44 SHAN) Comprehensive Metabolic Panel Collection DT: WedSep 07, 2016 15:13, Anion Gap 19 mmol/L, Range (10-20). (15:44 SHAN) CBC with Differential Collection DT: WedSep 07, 2016 15:13, White Blood Cell (WBC) Count 8.5 thou/uL, Range (4.8-10.8), *Red Blood Cell (RBC) Count 3.78 - L mill/uL, Range (4.20-5.40), Hemoglobin 12.2 g/dL, Range (12.0-16.0), *Hematocrit 35.0 - L %, Range (36.0-47.0), Mean Corpuscular Volume 92.6 fl, Range (81.0-99.0), *Mean Corpuscular Hemoglobin 32.3 - H pg, Range (27.0-31.0), Mean Corpuscular HGB CONC 34.8 g/dL, Range (32.0-36.0), RBC Distribution Width 12.2 %, Range (11.5-14.5), Platelet Count 346 thou/uL, Range (130-400), Mean Platelet Volume 7.4 fL, Range (7.4-10.4), %Neutrophils 61.6 %, Range (42.0-75.0), %Lymphocytes 28.1 %, Range (21.0-51.0), %Monocytes 6.2 %, Range (0.0-10.0), %Eosinophils 2.7 %, Range (0.0-10.0), *%Basophils 1.5 - H %, Range (0.0-1.0), #Neutrophils 5.2 thou/uL, Range (1.40-6.50), #Lymphocytes 2.4 thou/uL, Range (1.20-3.40), #Monocytes 0.5 thou/uL, Range (0.11-0.59), #Eosinphils 0.2 thou/uL, Range (0.0-0.7), #Basophils 0.1 thou/uL, Range (0.0-0.2). (15:44 SHAN) Comprehensive Metabolic Panel Collection DT: WedSep 07, 2016 15:13, Sodium 141 mmol/L, Range (136-145), &a-1R&a+25V*p+0X*s8909D*c202B*c15G*c2P*p-0X&a-25V&a+1R Name: Jolie Joshi : 1975 F41 MedRec: [id number] AcctNum: [id number] Prepared: WedSep 07, 2016 17:46 by Interface Page 10 of 11 pMD [facility] RECORD Potassium 3.6 mmol/L, Range (3.5-5.1), Chloride 104 mmol/L, Range (98-107), Carbon Dioxide 22 mmol/L, Range (22-29), Anion Gap 19 mmol/L, Range (10-20), BUN (Urea Nitrogen) 9 mg/dL, Range (7.0-18.7), Creatinine 0.72 mg/dL, Range (0.6-1.1), Estimated GFR-MDRD 90 , Reference Range for Estimated GFR: Greater than 90, mL/min/1.73 m2 NOTE: The MDRD equation has not been validated for use, with the elderly (over 70 years of age), women, patients with, serious comorbid condition or persons with extremes of body size, muscle, mass, or nutritional status. , Glucose 97 mg/dL, Range (70-105), Calcium 9.5 mg/dL, Range (7.8-10.44), Bilirubin, Total 0.4 mg/dL, Range (0.2-1.2), Protein, Total 6.9 g/dL, Range (6.0-8.3), NOTE: Plasma values are generally 0.3 to 0.5 g/dL higher than serum values, due to the presence of fibrinogen. , Albumin 4.5 g/dL, Range (3.5-5.0), Globulin 2.4 g/dL, Range (2.4-3.5), Alb/Glob Ratio 1.9 g/dL, Range (1.2-2.2), Alkaline Phosphatase 132 U/L, Range (40-150), *AST (SGOT) 86 - H U/L, Range (5-34), *ALT (SGPT) 101 - H U/L, Range (0-55). (16:00 SHON) Cardiac Profile w/CKMB & TropI Collection DT: WedSep 07, 2016 16:51, See comment below , REPEAT CARDIAC PER VERBAL ORDER. , CKMB 0.6 ng/mL, Range (0-6.6), Troponin I Less than 0.010 ng/mL, Range (< 0.028), Reference Range , 0.00 - 0.028 ng/mL Negative 0.029 - 0.29 ng/mL , Indeterminate Greater or Equal to 0.3 ng/mL Strongly suggests AL , . (17:16 SHIKHA) Mauricio: SHIKHA=MICHELLE Small, Iman DEVINE=MICHELLE Garcia, Stephanie BECKER=MICHELLE Pearson, Edwina MENENDEZ=MD Paxton, Mykel &a-1R&a+25V*p+0X*[id number]*c202B*c15G*c2P*p-0X&a-25V&a+1R Name: Jolie Joshi : 1975 F41 MedRec: [id number] AcctNum: [id number] Prepared: WedSep 07, 2016 17:46 by Interface Page 11 of 11 pMD MTDD
== END 2016-09-07 17:29 | disposition home or self-care (01) ==
LOC: MADERS 14:52
DX: K21.0 Gastro-esophageal reflux disease with esophagitis (principal); F17.210 Nicotine dependence, cigarettes, uncomplicated
CPT/HCPCS: 71010; 80053; 82553; 84484; 85025; 93005; 96361; 96374; 96375; J2405; J3010; J7050

== ENCOUNTER 2016-10-01 16:03 | Emergency (ER) | payer SELFPAY ==
[~2016-10-01 16:03] MED LIST changes: +Iopamidol 370 76% 100 ML VIAL ONE; -Sodium Chloride 0.9% 1,000 ML BAG ONE
[2016-10-01 16:35] LABS: #Basophils 0.1 thou/uL (0.0-0.2); #Eosinphils 0.4 thou/uL (0.0-0.7); #Lymphocytes 2.7 thou/uL (1.20-3.40); #Monocytes 0.5 thou/uL (0.11-0.59); #Neutrophils 5.2 thou/uL (1.40-6.50); %Basophils 1.5 % (0.0-1.0); %Eosinophils 3.9 % (0.0-10.0); %Lymphocytes 30.5 % (21.0-51.0); %Monocytes 5.7 % (0.0-10.0); %Neutrophils 58.4 % (42.0-75.0); Hemoglobin 11.8 g/dL (12.0-16.0); Mean Corpuscular HGB CONC 34.1 g/dL (32.0-36.0); Mean Corpuscular Hemoglobin 31.8 pg (27.0-31.0); Mean Corpuscular Volume 93.3 fl (81.0-99.0); Mean Platelet Volume 7.2 fL (7.4-10.4); Platelet Count 332 thou/uL (130-400); RBC Distribution Width 12.4 % (11.5-14.5); Red Blood Cell (RBC) Count 3.72 mill/uL (4.20-5.40)
--- NOTE | 2016-10-01 16:52 | RAD ---
PORTABLE CHEST ONE VIEW: 10/01/16 at 4:27 p.m. HISTORY: Chest pain. FINDINGS: The heart size is normal. The lungs are expanded without focal areas of consolidation, pneumothorax or pleural effusions are seen. IMPRESSION: No radiographic evidence of acute cardiopulmonary process. POS: [facility]
[2016-10-01 16:53] LABS: ALT (SGPT) 8 U/L (0-55); AST (SGOT) 13 U/L (5-34); Albumin 4.2 g/dL (3.5-5.0); Alkaline Phosphatase 106 U/L (40-150); Anion Gap 12 mmol/L (10-20); BUN (Urea Nitrogen) 8 mg/dL (7.0-18.7); Bilirubin, Total Less than 0.3 mg/dL (0.2-1.2); Calc. Creatinine Clearance 0 mL/min (70-130); Calcium 9.2 mg/dL (7.8-10.44); Carbon Dioxide 29 mmol/L (22-29); Chloride 101 mmol/L (98-107); Estimated GFR-MDRD 86; Globulin 2.5 g/dL (2.4-3.5); Glucose 100 mg/dL (70-105); Potassium 3.9 mmol/L (3.5-5.1); Protein, Total 6.7 g/dL (6.0-8.3); Sodium 138 mmol/L (136-145)
[2016-10-01 17:01] LABS: CKMB 0.6 ng/mL (0-6.6); Troponin I Less than 0.010 ng/mL (< 0.028)
[2016-10-01 17:05] LABS: Bilirubin Negative (Negative); Blood, Urine Trace (Negative); Glucose, Urine (Dipstick) Negative (Negative); Leukocyte Negative (Negative); Nitrite Negative (Negative); Protein, Urine (Dipstick) Negative (Neg-Trace); Urobilinogen 0.2 mg/dL (0.2-1.0)
[2016-10-01 17:14] LABS: RBC/HPF 0-3 HPF (0-3); Squamous Epithelial 0-3 HPF (0-3); WBC/HPF 0-3 HPF (0-3)
[2016-10-01 17:15] LABS: Bacteria/HPF Rare-Few HPF (None Seen)
[2016-10-01 17:30] LABS: Amphetamine Not Detected (NotDetected); Barbiturates Screen Not Detected (NotDetected); Benzodiazepine Screen Not Detected (NotDetected); Cocaine Metabolite Screen Not Detected (NotDetected); Medtox Control Line Valid? VALID (VALID); Methadone Not Detected (NotDetected); Methamphetamine Not Detected (NotDetected); Opiate Screen Not Detected (NotDetected); Oxycodone Screen Not Detected (NotDetected); Phencyclidine (PCP) Not Detected (NotDetected); THC/Cannabinoid Screen Detected (NotDetected); Tricyclic Screen Not Detected (NotDetected)
--- NOTE | 2016-10-01 17:54 | CT ---
CT CHEST WITH CONTRAST: 10/01/16 Multiple axial tomograms obtained through the chest with IV enhancement. Pulmonary angio study was n ot performed. HISTORY: Chest pain. The lungs are well aerated and appear clear. There is no evidence of infiltrate or effusion. The med iastinum is unremarkable. No adenopathy seen. Thoracic aorta is unremarkable with no evidence of dis section. The proximal pulmonary arteries are opacified with no evidence of filling defect. IMPRESSION: Unremarkable CT chest. CT ABDOMEN AND PELVIS WITH CONTRAST: Multiple axial tomograms obtained through the abdomen and pelvis with IV enhancement. Oral contrast was not given. HISTORY: Chest pain. The liver, spleen, and pancreas appear unremarkable. Adrenal glands and kidneys are unremarkable. Review of the bowel reveals a focal segment in the mid small bowel which shows mural thickening and has the appearance of telescoping on the axial images. This may represent a segment of intussuscepti on. This can occur spontaneously in adults and usually resolves spontaneously. This does have an unu sual appearance; however, and I recommend that patient have an elective followup small bowel exam to clear this region of the small bowel. The distal small bowel show mild fluid filled distention without dilatation. The appendix appears no rmal. Colon unremarkable. Image through pelvis show evidence of hysterectomy. Bladder is unremarkab le. Aorta is normal caliber. Mild atherosclerotic changes are seen in the aorta. No adenopathy appar ent. IMPRESSION: Abnormal segment of small bowel in the mid abdomen. I cannot exclude focal intussusception although other small bowel lesions are not excluded. Recommend elective small bowel exam for further evaluati on. POS: [facility]
== END 2016-10-01 19:32 | disposition short-term general hospital (02) ==
LOC: MADERS 16:03
DX: M79.605 Pain in left leg (principal); M79.604 Pain in right leg; R07.9 Chest pain, unspecified; K56.1 Intussusception; M54.5 Low back pain; F17.210 Nicotine dependence, cigarettes, uncomplicated; Z90.49 Acquired absence of other specified parts of digestive tract
CPT/HCPCS: 71010; 71260; 74177; 80053; 80306; 81003; 81015; 82553; 84484; 85025; 93005

== ENCOUNTER 2017-03-25 14:38 | Emergency (ER) | payer SELFPAY ==
[2017-03-25] MEDS ORDERED: HYDROcodone/Acetaminophen 10/325 mg Tablet ONE (15:07)
[2017-03-25] MEDS ORDERED: AMOXicillin 250 MG CAP ONE (15:07)
[2017-03-25] MEDS ORDERED: Naproxen 500 MG TAB ONE (15:07)
== END 2017-03-25 15:20 | disposition home or self-care (01) ==
LOC: MADERS 14:38
DX: K04.7 Periapical abscess without sinus (principal); F32.9 Major depressive disorder, single episode, unspecified; F17.210 Nicotine dependence, cigarettes, uncomplicated
CPT/HCPCS: 99282

== ENCOUNTER 2017-05-12 08:39 | Emergency (ER) | payer MEDICAID, SELFPAY | END 2017-05-12 09:10 | disposition home or self-care (01) | LOC: MADERS 08:39 | DX: M26.601 Right temporomandibular joint disorder, unspecified (principal); F32.9 Major depressive disorder, single episode, unspecified; F17.210 Nicotine dependence, cigarettes, uncomplicated | CPT/HCPCS: 99282 ==

== ENCOUNTER 2017-08-12 09:56 | Emergency (ER) | payer MEDICAID ==
[2017-08-12 10:41] LABS: Bilirubin Negative (Negative); Blood, Urine Trace (Negative); Clarity Clear (Clear); Glucose, Urine (Dipstick) Negative (Negative); Leukocyte Negative (Negative); Nitrite Negative (Negative); Protein, Urine (Dipstick) Negative (Neg-Trace); Specific Gravity, Urine 1.015 (1.005-1.030); pH, Urine 7.5 (5.0-9.0)
[2017-08-12] MEDS ORDERED: Ondansetron ODT 4 MG TAB ONE (10:42)
[2017-08-12 10:45] LABS: Pregnancy Test - Urine (BHCG) Negative (Negative); Pregu Control Background? CLEAR/WHITE (CLR/WHITE); Pregu Control Bar Appear? YES (CONTROL BAR); Specific Gravity 1.015 (1.002-1.036)
[2017-08-12 10:46] LABS: Bacteria/HPF Rare-Few HPF (None Seen); RBC/HPF 0-3 HPF (0-3); WBC/HPF 0-3 HPF (0-3)
[2017-08-12] MEDS ORDERED: Promethazine HCl 25 MG/ML VIAL ONE (11:16)
== END 2017-08-12 11:25 | disposition home or self-care (01) ==
LOC: MADERS 09:56
DX: A08.4 Viral intestinal infection, unspecified (principal); F32.9 Major depressive disorder, single episode, unspecified; F17.210 Nicotine dependence, cigarettes, uncomplicated
CPT/HCPCS: 81003; 81015; 81025; 96372; J2550; Q0162

== ENCOUNTER 2017-08-23 17:16 | Emergency (ER) | payer MEDICAID ==
[2017-08-23] MEDS ORDERED: HYDROcodone/Acetaminophen 10/325 mg Tablet ONE (18:48)
[2017-08-23] MEDS ORDERED: Amoxicillin/Potassium Clav 875 MG TAB ONE ×2 (18:48→18:50)
[2017-08-23] MEDS ORDERED: Oseltamivir 75 MG CAP ONE (18:48)
== END 2017-08-23 18:49 | disposition home or self-care (01) ==
LOC: MADERS 17:16
DX: J11.1 Influenza due to unidentified influenza virus with other respiratory manifestations (principal); F32.9 Major depressive disorder, single episode, unspecified; F17.210 Nicotine dependence, cigarettes, uncomplicated
CPT/HCPCS: 99283

== ENCOUNTER 2020-01-11 18:40 | Emergency (ER) | payer SELFPAY ==
[2020-01-11] MEDS ORDERED: Bacitracin 1 PK ONE (19:26)
[2020-01-11] MEDS ORDERED: Adacel (T-DAP) 0.5 ML SYRINGE ONE (19:26)
== END 2020-01-11 19:51 | disposition home or self-care (01) ==
LOC: MADERS 18:40
DX: L08.9 Local infection of the skin and subcutaneous tissue, unspecified (principal); F32.9 Major depressive disorder, single episode, unspecified; F17.210 Nicotine dependence, cigarettes, uncomplicated
CPT/HCPCS: 90471; 90715

== ENCOUNTER 2020-06-17 07:27 | Emergency (ER) | payer SELFPAY ==
--- NOTE | 2020-06-17 07:57 | RAD ---
Radiograph left shoulder 3 views: HISTORY: 45-year-old female with acute traumatic shoulder pain from fall FINDINGS: No fracture, dislocation, or high-grade DJD. IMPRESSION: Negative
== END 2020-06-17 08:06 | disposition home or self-care (01) ==
LOC: MADERS 07:27
DX: S43.402A Unspecified sprain of left shoulder joint, initial encounter (principal); F17.210 Nicotine dependence, cigarettes, uncomplicated; F32.9 Major depressive disorder, single episode, unspecified; W17.89XA Other fall from one level to another, initial encounter

== ENCOUNTER 2020-08-19 18:38 | Emergency (ER) | payer SELFPAY ==
--- NOTE | 2020-08-19 19:50 | RAD ---
Exam: Chest one view HISTORY:Cough Comparison: 10/01/2016 FINDINGS: Cardiac silhouette: Normal Aorta: Unremarkable Pulmonary vessels: Normal Costophrenic angles: Clear LUNGS: No masses or consolidation. Lungs are hyperinflated. Pneumothorax: None Osseous abnormalities: None IMPRESSION: No acute cardiopulmonary process.
[2020-08-19] MEDS ORDERED: predniSONE 20 MG TAB ONE (20:16)
[2020-08-20 18:53] LABS: SARS-CoV-2 MS2 Positive; SARS-CoV-2 N Gene Negative; SARS-CoV-2 S Gene Negative; SARS-CoV-2 by NAA Not Detected (NotDetected); SARS-CoV-2 orf1ab Negative
== END 2020-08-19 20:27 | disposition home or self-care (01) ==
LOC: MADERS 18:38
DX: J06.9 Acute upper respiratory infection, unspecified (principal); Z20.822 Contact with and (suspected) exposure to COVID-19; F17.210 Nicotine dependence, cigarettes, uncomplicated
CPT/HCPCS: 71045; 87635; 87804; 93005; J7512; U0003

== ENCOUNTER 2020-10-09 14:53 | Emergency (ER) | payer SELFPAY | END 2020-10-09 15:55 | disposition home or self-care (01) | LOC: MADERS 14:53 | DX: K02.9 Dental caries, unspecified (principal); F17.210 Nicotine dependence, cigarettes, uncomplicated | CPT/HCPCS: 99283 ==

== ENCOUNTER 2020-10-12 20:57 | Emergency (ER) | payer SELFPAY ==
--- NOTE | 2020-10-12 21:20 | RAD ---
Exam: Chest one view HISTORY:Cough syncope Comparison: 08/19/2020 FINDINGS: Cardiac silhouette: Normal Aorta: Unremarkable Pulmonary vessels: Normal Costophrenic angles: Clear LUNGS: No masses or consolidation. Pneumothorax: None Osseous abnormalities: Old posterior right rib fracture IMPRESSION: No acute cardiopulmonary process.
[2020-10-12 21:28] LABS: #Basophils 0.1 thou/uL (0.0-0.2); #Eosinphils 0.4 thou/uL (0.0-0.7); #Lymphocytes 2.4 thou/uL (1.20-3.40); #Monocytes 0.7 thou/uL (0.11-0.59); #Neutrophils 6.6 thou/uL (1.40-6.50); %Basophils 1.1 % (0.0-1.0); %Eosinophils 4.3 % (0.0-10.0); %Lymphocytes 23.6 % (21.0-51.0); %Monocytes 6.4 % (0.0-10.0); %Neutrophils 64.6 % (42.0-75.0); Hemoglobin 11.5 g/dL (12.0-16.0); Mean Corpuscular HGB CONC 33.5 g/dL (32.0-36.0); Mean Corpuscular Hemoglobin 30.7 pg (27.0-31.0); Mean Corpuscular Volume 91.5 fL (78.0-98.0); Mean Platelet Volume 6.3 fL (7.4-10.4); Platelet Count 346 thou/uL (130-400); RBC Distribution Width 11.7 % (11.5-14.5); Red Blood Cell (RBC) Count 3.74 mill/uL (4.20-5.40); White Blood Cell (WBC) Count 10.2 thou/uL (4.8-10.8)
--- NOTE | 2020-10-12 21:30 | CT ---
Exam: Head CT without contrast HISTORY: Altered mental status COMPARISON: 10/21/2012 FINDINGS: Hemorrhage: No intraparenchymal hemorrhage or extra-axial hematoma. Brain parenchyma: Cortical garay-white matter differentiation is preserved. No mass effect or midline shift. Basilar cisterns are patent. Ventricular system: Ventricles and sulci are patent and symmetric. Calvarium: Intact. Sinuses and mastoid air cells: Adequate aeration. IMPRESSION: No acute intracranial process.
[2020-10-12 21:34] LABS: Bilirubin Negative (Negative); Blood, Urine Trace (Negative); Clarity Clear (Clear); Glucose, Urine (Dipstick) Negative (Negative); Ketone, Urine Negative (Negative); Leukocyte Small (Negative); Nitrite Negative (Negative); Protein, Urine (Dipstick) Negative (Neg-Trace); Urobilinogen 0.2 mg/dL (Less than 2); pH, Urine 5.5 (5.0-9.0)
[2020-10-12 21:40] LABS: Amphetamine Not Detected (NotDetected); Barbiturates Screen Not Detected (NotDetected); Benzodiazepine Screen Not Detected (NotDetected); Cocaine Metabolite Screen Not Detected (NotDetected); Medtox Control Line Valid? VALID (VALID); Methadone Not Detected (NotDetected); Methamphetamine Not Detected (NotDetected); Opiate Screen Not Detected (NotDetected); Oxycodone Screen Not Detected (NotDetected); Phencyclidine (PCP) Not Detected (NotDetected); RBC/HPF 0-3 HPF (0-3); Squamous Epithelial 0-3 HPF (0-3); THC/Cannabinoid Screen Detected (NotDetected); Tricyclic Screen Not Detected (NotDetected); Yeast-Hyphae 2+ HPF (None Seen)
[2020-10-12 21:52] LABS: Acetaminophen Less than 6.0 mcg/mL (10.0-30.0); Alcohol Less than 10 mg/dL (Less than 10); Salicylate Less than 8.0 mg/dL (15.0-30.0)
[2020-10-12 21:54] LABS: ALT (SGPT) 8 U/L (8-55); AST (SGOT) 14 U/L (5-34); Albumin 3.9 g/dL (3.5-5.0); Alkaline Phosphatase 79 U/L (40-110); Anion Gap 17 mmol/L (10-20); BUN (Urea Nitrogen) 24 mg/dL (7.0-18.7); Bilirubin, Total Less than 0.2 mg/dL (0.2-1.2); CK (CPK) 80 U/L (29-168); Calc. Creatinine Clearance 0 mL/min (70-130); Carbon Dioxide 17 mmol/L (22-29); Chloride 110 mmol/L (98-107); Globulin 2.1 g/dL (2.4-3.5); Glucose 83 mg/dL (70-105); Potassium 3.6 mmol/L (3.5-5.1); Sodium 140 mmol/L (136-145)
[2020-10-12] MEDS ORDERED: Ketorolac Tromethamine 30 MG/ML VIAL ONE (22:06)
== END 2020-10-12 22:18 | disposition home or self-care (01) ==
LOC: MADERS 20:57
DX: R56.9 Unspecified convulsions (principal); F17.210 Nicotine dependence, cigarettes, uncomplicated
CPT/HCPCS: 70450; 71045; 80053; 80306; 80307; 81003; 81015; 82550; 84484; 85025; 93005; 96374; J1885

== ENCOUNTER 2020-11-08 12:00 | Emergency (ER) | payer SELFPAY ==
[2020-11-08] MEDS ORDERED: Sodium Chloride 0.9% 1,000 ML ONE (12:31)
[2020-11-08] MEDS ORDERED: Fentanyl 100 MCG/2 ML VIAL ONE (12:31)
[2020-11-08] MEDS ORDERED: Ondansetron PF 4 MG/2 ML Vial ONE (12:31)
[2020-11-08 12:46] LABS: Bilirubin Negative (Negative); Blood, Urine Negative (Negative); Clarity Hazy (Clear); Glucose, Urine (Dipstick) Negative (Negative); Ketone, Urine Negative (Negative); Leukocyte Trace (Negative); Nitrite Positive (Negative); Protein, Urine (Dipstick) Negative (Neg-Trace); Urobilinogen 0.2 mg/dL (Less than 2); pH, Urine 7.5 (5.0-9.0)
[2020-11-08 12:47] LABS: #Basophils 0.1 thou/uL (0.0-0.2); #Eosinphils 0.3 thou/uL (0.0-0.7); #Lymphocytes 2.4 thou/uL (1.20-3.40); #Monocytes 0.6 thou/uL (0.11-0.59); #Neutrophils 5.5 thou/uL (1.40-6.50); %Basophils 1.1 % (0.0-1.0); %Eosinophils 3.2 % (0.0-10.0); %Lymphocytes 27.2 % (21.0-51.0); %Monocytes 6.6 % (0.0-10.0); Mean Corpuscular Hemoglobin 31.2 pg (27.0-31.0); Mean Corpuscular Volume 91.7 fL (78.0-98.0); Platelet Count 368 thou/uL (130-400); RBC Distribution Width 12.1 % (11.5-14.5); Red Blood Cell (RBC) Count 3.52 mill/uL (4.20-5.40); White Blood Cell (WBC) Count 8.9 thou/uL (4.8-10.8)
[2020-11-08 12:52] LABS: RBC/HPF 0-3 HPF (0-3); Squamous Epithelial 0-3 HPF (0-3); WBC/HPF 0-3 HPF (0-3)
[2020-11-08 12:53] LABS: Bacteria/HPF 1+ HPF (None Seen)
[2020-11-08 12:58] LABS: Amphetamine Not Detected (NotDetected); Barbiturates Screen Not Detected (NotDetected); Benzodiazepine Screen Not Detected (NotDetected); Cocaine Metabolite Screen Not Detected (NotDetected); Methadone Not Detected (NotDetected); Methamphetamine Not Detected (NotDetected); Opiate Screen Not Detected (NotDetected); Oxycodone Screen Not Detected (NotDetected); Phencyclidine (PCP) Not Detected (NotDetected); THC/Cannabinoid Screen Detected (NotDetected); Tricyclic Screen Not Detected (NotDetected)
[2020-11-08 12:59] LABS: Medtox Control Line Valid? VALID (VALID)
[2020-11-08 13:03] LABS: ALT (SGPT) 12 U/L (8-55); AST (SGOT) 13 U/L (5-34); Alkaline Phosphatase 94 U/L (40-110); Anion Gap 13 mmol/L (10-20); BUN (Urea Nitrogen) 11 mg/dL (7.0-18.7); Bilirubin, Total Less than 0.2 mg/dL (0.2-1.2); Calc. Creatinine Clearance 0 mL/min (70-130); Calcium 8.8 mg/dL (7.8-10.44); Carbon Dioxide 25 mmol/L (22-29); Chloride 106 mmol/L (98-107); Globulin 2.3 g/dL (2.4-3.5); Glucose 97 mg/dL (70-105); Potassium 3.6 mmol/L (3.5-5.1); Protein, Total 6.3 g/dL (6.0-8.3); Sodium 140 mmol/L (136-145)
== END 2020-11-08 13:40 | disposition home or self-care (01) ==
LOC: MADERS 12:00
DX: R10.31 Right lower quadrant pain (principal); R11.2 Nausea with vomiting, unspecified; Z71.6 Tobacco abuse counseling; F17.210 Nicotine dependence, cigarettes, uncomplicated
CPT/HCPCS: 36415; 74177; 80053; 80306; 81003; 81015; 85025; 96374; 96375; 99406; J2405; J3010; J7050; Q9967

== ENCOUNTER 2021-01-09 16:11 | Emergency (ER) | payer OTHER, SELFPAY | END 2021-01-09 16:35 | disposition home or self-care (01) | LOC: MADERS 16:11 | DX: S61.452A Open bite of left hand, initial encounter (principal); F17.210 Nicotine dependence, cigarettes, uncomplicated; W54.0XXA Bitten by dog, initial encounter | CPT/HCPCS: 99283 ==